=== PATIENT | female | born 1955 | race African-American/Black ===

== ENCOUNTER → 2016-12-24 | Outpatient (CLI) | payer MEDICARE, OTHER ==
--- NOTE | 2016-12-24 15:06 | KCIC ---
Bilateral digital screening mammograms with CAD: HISTORY Routine screening. COMPARISON Comparison is made to previous examination dated 05/17/2014. FINDINGS Breast density category B. The skin and nipples show no abnormalities. No abnormal lymph nodes are seen in the axilla. The breast parenchyma shows scattered fibroglandular density. There are no dominant masses, suspicious calcifications or architectural distortions. IMPRESSION No evidence of malignancy. Recommend routine annual mammographic screening. This study was interpreted with the benefit of Computerized Aided Detection (CAD). Mammography is not 100% sensitive in detecting breast cancer. Therefore, a self breast exam and a clinical breast exam are very important. A negative mammogram does not negate a clinically suspicious finding and should not result in a delay in biopsying a clinically suspicious abnormality. BI-RADS category 1. Negative. This patient's information has been entered into a reminder system for the patient to be notified with the results of this examination and a target date for her next mammograms. Electronically signed by: Rachel Burroughs MD (Dec 24, 2016 15:05:16)
== END | disposition home or self-care (01) ==
LOC: KCIC MAMMO 10:26
PROVIDERS: ATTEND Family Medicine
DX: Z12.31 Encounter for screening mammogram for malignant neoplasm of breast (principal)
CPT/HCPCS: G0202; 77067

== ENCOUNTER → 2018-01-04 | Outpatient (CLI) | payer MEDICARE, MEDICAID, OTHER | END | disposition home or self-care (01) | LOC: KCIC MAMMO 13:23 | DX: Z12.31 Encounter for screening mammogram for malignant neoplasm of breast (principal) | CPT/HCPCS: 77063; 77067 ==

== ENCOUNTER → 2019-01-24 | Outpatient (CLI) | payer MEDICARE, MEDICAID ==
--- NOTE | 2019-01-24 16:39 | KCIC ---
History: Screening. Bilateral digital CC and MLO views were obtained with mammography and tomosynthesis. Computer aided detection was utilized with iCAD Second Look 7.2-H. Previous: January 04, 2018 and priors. There are scattered fibroglandular densities (Level 2 density).There are no suspicious masses, suspicious microcalcifications or areas of architectural distortion. Nodularity of the glandular tissue is stable. IMPRESSION: Negative mammogram. Patient information was entered into the [employer] reminder system with a target due date for the next screening mammogram. Routine annual screening mammogram in one year advised. BI-RADS Category 1: Negative. If your mammogram demonstrates that you have dense breast tissue, which could hide abnormalities, and if you have other risk factors for breast cancer that have been identified, you might benefit from supplemental screening tests that may be suggested by your ordering physician. Dense breast tissue, in and of itself, is a relatively common condition. This information is not provided to cause undue concern, but rather to raise your awareness and to promote discussion with your physician regarding the presence of other risk factors, in addition to dense breast tissue. A report of your mammography results will be sent to you and your physician. You should contact your physician if you have any questions or concerns regarding this report. A mammogram does not have 100% sensitivity and therefore a negative imaging study should not delay further work up of a suspicious abnormality. "Our facility is accredited by the [employer] Mammography Program." Electronically signed by: Maurice Jung MD (01/24/2019 4:36 PM) [id number]
== END | disposition home or self-care (01) ==
LOC: KCIC MAMMO 08:10
PROVIDERS: ATTEND Family Medicine
DX: Z12.31 Encounter for screening mammogram for malignant neoplasm of breast (principal)
CPT/HCPCS: 77063; 77067

== ENCOUNTER 2019-08-31 20:06 | Emergency (ER) | payer MEDICARE, MEDICAID ==
[~2019-08-31] VITALS: Ht 154.9 cm; Wt 93.0 kg
[2019-08-31 20:06] VITALS: BP 191/89
[2019-08-31] MEDS ORDERED: EMPA10TA PO (20:16)
[2019-08-31] MEDS ORDERED: METF10007 PO (20:16)
[2019-08-31] MEDS ORDERED: AMLO5TAB10 PO (20:17)
[2019-08-31] MEDS ORDERED: LISI10TA2 PO (20:17)
--- NOTE | 2019-08-31 21:04 | PHYS DOC ---
Past Medical History Past Medical History: Arthritis, Diabetes-Type II, Migraines Additional Past Medical Histor: NEUROPATHY,CHRONIC BACK PAIN,IRON DEFFICIENCIES Past Surgical History: Appendectomy, Additional Past Surgical Histo: PORT REMOVED,R SHOULDER,R WRIST,BACK SX Alcohol Use: None Drug Use: None Adult General Chief Complaint Chief Complaint: ANKLE PROBLEM HPI HPI Patient is a 63 year old female who presents with was walking her dog when she tripped and fell, rolling her right ankle and foot. Patient rates her pain a 10 out 10. Review of Systems Review of Systems Musculoskeletal: Denies back pain. Right foot and ankle joint pain [] All other systems were reviewed and found to be within normal limits, except as documented in this note. Current Medications Current Medications Current Medications Medications (Trade) Dose Ordered Sig/Amee Start Time Stop Time Status Last Admin Dose Admin Acetaminophen/ Hydrocodone Bitart (Lortab 5/325) 1 tab 1X ONCE 08/31/19 21:15 08/31/19 21:16 DC 08/31/19 21:15 1 TAB Allergies Allergies Allergies Coded Allergies Type Severity Reaction Last Updated Verified Penicillins Allergy Unknown "I DONT KNOW MY MOPM SAYS I WAS" 08/31/19 Yes Uncoded Allergies Type Severity Reaction Last Updated Verified "MUSCLE RELAXER" Allergy Intermediate Unknown 08/31/19 Physical Exam Physical Exam Constitutional: Well developed, well nourished, no acute distress, non-toxic raisa earance. [] HENT: Normocephalic, atraumatic, bilateral external ears normal, oropharynx moist, no oral exudates, nose normal. [] Eyes: PERRLA, EOMI, conjunctiva normal, no discharge. [] Neck: Normal range of motion, no tenderness, supple, no stridor. [] Cardiovascular:Heart rate regular rhythm, no murmur [] Lungs & Thorax: Bilateral breath sounds clear to auscultation [] Abdomen: Bowel sounds normal, soft, no tenderness, no masses, no pulsatile masses. [] Skin: Warm, dry, no erythema, no rash. [] Back: No tenderness, no CVA tenderness. [] Extremities: Dorsal right foot and medial and lateral ankle tenderness, no cyanosis, no clubbing, ROM not intact, 1+ edema. [] Neurologic: Alert and oriented X 3, normal motor function, normal sensory function, no focal deficits noted. [] Psychologic: Affect normal, judgement normal, mood normal. [] Current Patient Data Vital Signs Vital Signs Date Time Temp Pulse Resp B/P (MAP) Pulse Ox O2 Delivery O2 Flow Rate FiO2 08/31/19 21:15 19 Room Air 08/31/19 20:06 97.7 107 191/89 (123) 99 97.7 EKG EKG [] Radiology/Procedures Radiology/Procedures [] Course & Med Decision Making Course & Med Decision Making Alert and oriented. Speaks in full clear sentences. Skin pink warm and dry. Pedal pulses are present. There is dorsal right foot 1+ swelling and tenderness to the fibula side. There is lateral medial ankle tenderness and 1+ swelling. Patient does have slight range of motion in the ankle but it is painful. Patient can wiggle her toes. Cap refill less than 3 seconds. Deformity or abrasions or lacerations. Xray read by Dr Burgos as a foot and ankle sprain with abnormal lucensy on the fibula. Patient placed in a Stirrup splint and to follow up with orthopedics. Splint Assessment: Neurovascularly intact post splint placement with good fit. Dragon Disclaimer Dragon Disclaimer This electronic medical record was generated, in whole or in part, using a voice recognition dictation system. Departure Departure Impression: Primary Impression: Ankle sprain Additional Impression: Foot sprain Disposition: HOME, SELF-CARE Condition: STABLE Referrals: ASAD MALIK (PCP) CRISTIAN CUELLAR MD Patient Instructions: Ankle Sprain, Foot Sprain-Brief Additional Instructions: Follow up with orthopedics by calling on Tuesday. Take medications as prescribed. Use ice and elevation. Scripts Hydrocodone/Apap 5-325 (NORCO 5-325 TABLET) 1 Each Tablet 1 TAB PO PRN Q6HRS PRN for PAIN, #10 TAB 0 Refills Prov: MARY AGUILAR DOUBLE NEEDLE OPERATOR 08/31/19 Problem Qualifiers Primary Impression: Ankle sprain Encounter type: initial encounter Involved ligament of ankle: unspecified ligament Laterality: right Qualified Codes: S93.401A - Sprain of unspecified ligament of right ankle, initial encounter Additional Impression: Foot sprain Encounter type: initial encounter Laterality: right Qualified Codes: S93.601A - Unspecified sprain of right foot, initial encounter MARY AGUILAR DOUBLE NEEDLE OPERATOR Aug 31, 2019 21:04
[2019-08-31] MEDS ORDERED: HYDROcodone/APAP 5/325MG 1 TAB TABLET PO ONE (21:15)
[2019-08-31] MEDS ORDERED: HYDR-3164 PO (22:01)
--- NOTE | 2019-08-31 22:07 | RAD ---
Indication: Fall TECHNIQUE: 3 views of the right foot and 3 views of the right ankle COMPARISON: None FINDINGS: Foot: Mild midfoot osteoarthritis. No acute fracture or dislocation. Ankle: No acute fracture or dislocation. Ankle mortise is intact. IMPRESSION: As above. Electronically signed by: Diego Petersen DO (08/31/2019 10:04 PM) [facility]
--- NOTE | 2019-08-31 22:07 | RAD ---
Indication: Fall TECHNIQUE: 3 views of the right foot and 3 views of the right ankle COMPARISON: None FINDINGS: Foot: Mild midfoot osteoarthritis. No acute fracture or dislocation. Ankle: No acute fracture or dislocation. Ankle mortise is intact. IMPRESSION: As above. Electronically signed by: Diego Petersen DO (08/31/2019 10:04 PM) [facility]
== END 2019-08-31 22:20 | disposition home or self-care (01) ==
LOC: ER 20:06
DX: S93.401A Sprain of unspecified ligament of right ankle, initial encounter (principal); S93.601A Unspecified sprain of right foot, initial encounter; G43.909 Migraine, unspecified, not intractable, without status migrainosus; E11.40 Type 2 diabetes mellitus with diabetic neuropathy, unspecified; G89.29 Other chronic pain; Z88.0 Allergy status to penicillin; Z88.8 Allergy status to other drugs, medicaments and biological substances; W01.0XXA Fall on same level from slipping, tripping and stumbling without subsequent striking against object, initial encounter; Y93.K1 Activity, walking an animal; Y92.89 Other specified places as the place of occurrence of the external cause; Y99.8 Other external cause status
CPT/HCPCS: 29515; 73610; 73630; 99284

== ENCOUNTER 2019-10-11 11:07 | Observation (INO) | payer MEDICARE, MEDICAID ==
[~2019-10-11] VITALS: Ht 154.9 cm; Wt 98.7 kg
[~2019-10-11 11:07] MED LIST: AMLO5TAB10 PO; EMPA10TA PO; HYDR-3164 PO; LISI10TA2 PO; METF10007 PO
[2019-10-11] MEDS ORDERED: fentaNYL PF VIAL 100 MCG/2 ML VIAL IVP ONE (11:30)
--- NOTE | 2019-10-11 11:31 | RAD ---
EXAM: CHEST 1 VIEW History: Chest pain COMPARISON: 01/10/2013 TECHNIQUE: Single portable radiograph of the chest FINDINGS: The cardiac silhouette is unremarkable. The lungs are clear bilaterally. The costophrenic sulci are clear and well demarcated. IMPRESSION: No radiographic evidence of an acute cardiopulmonary process. Electronically signed by: Juan Alberto Hurst MD (10/11/2019 11:28 AM) [place] [id number]
--- NOTE | 2019-10-11 11:41 | EKG ---
[facility] [address] [place] [address] Test Date: 2019-10-11 Test Time: 11:13:07 Pat Name: CHRISTIANA GRANT Department: Room: Gender: F [employer] Associate: : [id number] Requested By: HEIDI DUVAL Order Number: [id number] Reading MD: Measurements Intervals [place] Rate: 84 P: 158 PA: 134 QRS: -15 QRSD: 90 T: 35 QT: 378 QTc: 450 Interpretive Statements SINUS RHYTHM LEFT ATRIAL ABNORMALITY LEFTWARD AXIS ABNORMAL ECG RI6.01 No previous ECG available for comparison
[2019-10-11 11:44] LABS: BASO # 0.1 x10^3/uL (0.0-0.2); BASO % 1 % (0-3); EOS # 0.1 x10^3/uL (0.0-0.7); EOS % 2 % (0-3); HEMOGLOBIN 12.9 g/dL (12.0-15.5); LYMPH # 2.4 x10^3/uL (1.0-4.8); LYMPH % 30 % (24-48); MEAN CORPUSCULAR HEMOGLOBIN 28 pg (25-35); MEAN CORPUSCULAR HGB CONC 32 g/dL (31-37); MEAN CORPUSCULAR VOLUME 86 fL (79-100); MONO # 0.5 x10^3/uL (0.0-1.1); MONO % 7 % (0-9); NEUT # 4.7 x10^3/uL (1.8-7.7); NEUT % 60 % (31-73); PLATELET COUNT 379 x10^3/uL (140-400); RED BLOOD COUNT 4.65 x10^6/uL (3.50-5.40); RED CELL DISTRIBUTION WIDTH 16.4 % (11.5-14.5); WHITE BLOOD COUNT 7.8 x10^3/uL (4.0-11.0)
[2019-10-11 13:14] LABS: CALCIUM 9.3 mg/dL (8.5-10.1); CREATININE 0.8 mg/dL (0.6-1.0); GFR 87.9; POTASSIUM 4.2 mmol/L (3.5-5.1)
[2019-10-11 13:20] LABS: ALBUMIN 4.1 g/dL (3.4-5.0); ALBUMIN/GLOBULIN RATIO 1.2 (1.0-1.7); TOTAL BILIRUBIN 0.2 mg/dL (0.2-1.0); TOTAL PROTEIN 7.5 g/dL (6.4-8.2)
--- NOTE | 2019-10-11 14:49 | PDOC1 ---
History and Physical Date of Admission Date of Admission DATE: 10/11/19 TIME: 14:48 Identification/Chief Complaint Chief Complaint Chest pain Source Source: Patient History of Present Illness History of Present Illness Ms May is a 63 yo AA F w/ PMHx HTN, Hyperlipidemia, Peripheral neuropathy, Anxiety, Depression, Rheumatoid arthritis, Diabetes who was driven to ED by her son for substernal chest pain. Patient reports pain began 1 week ago. Describes as stabbing pain in her central chest 02/26. Is significantly worse with applying pressure to the central chest and with eating. Lexiscan February of 2019 showed subtle area of reversible ischemia involving the distal inferior wall. [place] to be low risk overall and no other workup was conducted. Patient denies any associated dizziness, diaphoresis, SOA, or palpitations. No radiation to her jaw or arm, has numbness and tingling related to polyneuropathy EKG NSR, rate 84. No acute ST t wave changes and troponin WNL. CXR clear. Due to her high risk ACS with DM2 and RA, admitted for observation with cardiology consultation. Past Medical History Cardiovascular: HTN, Hyperlipidemia, Aortic stenosis (Biscupid aortic valve) Pulmonary: No pertinent hx CENTRAL NERVOUS SYSTEM: Carpal Tunnel Syndrome GI: No pertinent hx Heme/Onc: No pertinent hx Hepatobiliary: No pertinent hx Psych: Anxiety, Depression Musculoskeletal: low back pain Rheumatologic: Rheumatoid arthritis Infectious disease: No pertinent hx ENT: No pertinent hx Renal/: No pertinent hx Endocrine: Diabetes Dermatology: No pertinent hx Past Surgical History Past Surgical History Appendectomy, , PORT REMOVED,R SHOULDER,R WRIST,BACK SX Past Surgical History: Other Family History Family History: Hypertension Social History Smoke: No ALCOHOL: none Drugs: None Current Medications Current Medications Current Medications Fentanyl Citrate (Fentanyl 2ml Vial) 50 mcg 1X ONCE IVP Last administered on 10/11/19at 12:11; Start 10/11/19 at 11:30; Stop 10/11/19 at 11:31; Status DC Active Scripts Active Funk 5-325 Tablet (Acetaminophen/Hydrocodone Bitart) 1 Each Tablet 1 Tab PO PRN Q6HRS PRN Reported Amlodipine Besylate 5 Mg Tablet 5 Mg PO DAILY Lisinopril 10 Mg Tablet 1 Tab PO DAILY Jardiance (Empagliflozin) 10 Mg Tablet 10 Mg PO Metformin Hcl 1,000 Mg Tablet 1,000 Mg PO BIDWMEALS Allergies Allergies: Coded Allergies: Penicillins (Verified Allergy, Unknown, "I DONT KNOW MY MOPM SAYS I WAS" , 08/31/19) Uncoded Allergies: "MUSCLE RELAXER" (Allergy, Intermediate, Unknown, 08/31/19) "SWELLING ALL OVER" ROS General: YES: Fatigue, Malaise; No: Chills, Night Sweats, Appetite, Other PSYCHOLOGICAL ROS: YES: Anxiety; No: Behavioral Disorder, Concentration difficultie, Decreased libido, Depression, Disorientation, Hallucinations, Hostility, Irritablity, Memory difficulties, Mood Swings, Obsessive thoughts, Physical abuse, Sexual abuse, Sleep disturbances, Suicidal ideation, Other Eyes: No Blurry vision, No Decreased vision, No Double vision, No Dry eyes, No Excessive tearing, No Eye Pain, No Itchy Eyes, No Loss of vision, No Photophobia, No Scotomata, No Uses contacts, No Uses glasses, No Other HEENT: No: Heacaches, Visual Changes, Hearing change, Nasal congestion, Nasal discharge, Oral lesions, Sinus pain, Sore Throat, Epistaxis, Sneezing, Snoring, Tinnitus, Vertigo, Vocal changes, Other ALLERGY AND IMMUNOLOGY: No: Hives, Insect Bite Sensitivity, Itchy/Watery Eyes, Nasal Congestion, Post Nasal Drip, Seasonal Allergies, Other Hematological and Lymphatic: No: Bleeding Problems, Blood Clots, Blood Transfusions, Brusing, Night Sweats, Pallor, Swollen Lymph Nodes, Other ENDOCRINE: No: Breast Changes, Galactorrhea, Hair Pattern Changes, Hot Flashes, Malaise/lethargy, Mood Swings, Palpitations, Polydipsia/polyuria, Skin Changes, Temperature Intolerance, Unexpected Weight Changes, Other Breast: No New/Changing Breast Lumps, No Nipple changes, No Nipple discharge, No Other Respiratory: No: Cough, Hemoptysis, Orthopnea, Pleuritic Pain, Shortness of breath, SOB with excertion, Sputum Changes, Stridor, Tachypnea, Wheezing, Other Cardiovascular: yes Chest Pain; No Palpitations, No Orthopnea, No Paroxysmal Noc. Dyspnea, No Edema, No Lt Headedness, No Other Gastrointestinal: Yes Nausea; No Vomiting, No Abdominal Pain, No Diarrhea, No Constipation, No Melena, No Hematochezia, No Other Genitourinary: No Dysuria, No Frequency, No Incontinence, No Hematuria, No Retention, No Discharge, No Urgency, No Pain, No Flank Pain, No Other, No , No , No , No , No , No , No Musculoskeletal: Yes Joint Pain, Yes Joint Stiffness, Yes Muscle Pain; No Gait Disturbance, No Joint Swelling, No Muscular Weakness, No Pain In:, No Swelling In:, No Other Neurological: Yes Headaches; No Behavorial Changes, No Bowel/Bladder ControlChng, No Confusion, No D izziness, No Gait Disturbance, No Impaired Coord/balance, No Memory Loss, No Numbness/Tingling, No Seizures, No Speech Problems, No Tremors, No Visual Changes, No Weakness, No Other Skin: No Dry Skin, No Eczema, No Hair Changes, No Lumps, No Mole Changes, No Mottling, No Nail Changes, No Pruritus, No Rash, No Skin Lesion Changes, No Other, No Acne Physical Exam General: Alert, Oriented X3, Cooperative, No acute distress HEENT: Atraumatic, PERRLA, EOMI, Mucous membr. moist/pink Lungs: Clear to auscultation, Normal air movement Heart: S1S2, RRR, no thrills, no rubs, murmurs (2/6 MITCHELL), other (Reproducible chest pain) Abdomen: Normal bowel sounds, Soft, No tenderness, No hepatosplenomegaly, No masses Rectal Exam: not examined Extremities: No clubbing, No cyanosis, No edema, Normal pulses, No tenderness/swelling Skin: No rashes, No breakdown, No significant lesion Neuro: Normal gait, Normal speech, Strength at 5/5 X4 ext, Normal tone, Sensation intact, Cranial nerves 3-12 NL, Reflexes 2+ Psych/Mental Status: Mental status NL, Mood NL Vitals Vitals Vital Signs Date Time Temp Pulse Resp B/P (MAP) Pulse Ox O2 Delivery O2 Flow Rate FiO2 10/11/19 12:11 98 Room Air 10/11/19 11:08 97.7 88 18 169/77 (107) 97.7 Labs Labs Laboratory Tests Test 10/11/19 11:30 10/11/19 12:55 White Blood Count 7.8 x10^3/uL (4.0-11.0) Red Blood Count 4.65 x10^6/uL (3.50-5.40) Hemoglobin 12.9 g/dL (12.0-15.5) Hematocrit 40.0 % (36.0-47.0) Mean Corpuscular Volume 86 fL (79-100) Mean Corpuscular Hemoglobin 28 pg (25-35) Mean Corpuscular Hemoglobin Concent 32 g/dL (31-37) Red Cell Distribution Width 16.4 % (11.5-14.5) Platelet Count 379 x10^3/uL (140-400) Neutrophils (%) (Auto) 60 % (31-73) Lymphocytes (%) (Auto) 30 % (24-48) Monocytes (%) (Auto) 7 % (0-9) Eosinophils (%) (Auto) 2 % (0-3) Basophils (%) (Auto) 1 % (0-3) Neutrophils # (Auto) 4.7 x10^3/uL (1.8-7.7) Lymphocytes # (Auto) 2.4 x10^3/uL (1.0-4.8) Monocytes # (Auto) 0.5 x10^3/uL (0.0-1.1) Eosinophils # (Auto) 0.1 x10^3/uL (0.0-0.7) Basophils # (Auto) 0.1 x10^3/uL (0.0-0.2) D-Dimer (Laura) < 0.27 ug/mlFEU Sodium Level 145 mmol/L (136-145) Potassium Level 4.2 mmol/L (3.5-5.1) Chloride Level 107 mmol/L (98-107) Carbon Dioxide Level 32 mmol/L (21-32) Anion Gap 6 (6-14) Blood Urea Nitrogen 13 mg/dL (7-20) Creatinine 0.8 mg/dL (0.6-1.0) Estimated GFR (Cockcroft-Gault) 87.9 BUN/Creatinine Ratio 16 (6-20) Glucose Level 107 mg/dL (70-99) Calcium Level 9.3 mg/dL (8.5-10.1) Total Bilirubin 0.2 mg/dL (0.2-1.0) Aspartate Amino Transf (AST/SGOT) 23 U/L (15-37) Alanine Aminotransferase (ALT/SGPT) 38 U/L (14-59) Alkaline Phosphatase 108 U/L (46-116) Troponin I Quantitative < 0.017 ng/mL (0.000-0.055) Total Protein 7.5 g/dL (6.4-8.2) Albumin 4.1 g/dL (3.4-5.0) Albumin/Globulin Ratio 1.2 (1.0-1.7) Laboratory Tests Test 10/11/19 11:30 10/11/19 12:55 White Blood Count 7.8 x10^3/uL (4.0-11.0) Red Blood Count 4.65 x10^6/uL (3.50-5.40) Hemoglobin 12.9 g/dL (12.0-15.5) Hematocrit 40.0 % (36.0-47.0) Mean Corpuscular Volume 86 fL (79-100) Mean Corpuscular Hemoglobin 28 pg (25-35) Mean Corpuscular Hemoglobin Concent 32 g/dL (31-37) Red Cell Distribution Width 16.4 % (11.5-14.5) Platelet Count 379 x10^3/uL (140-400) Neutrophils (%) (Auto) 60 % (31-73) Lymphocytes (%) (Auto) 30 % (24-48) Monocytes (%) (Auto) 7 % (0-9) Eosinophils (%) (Auto) 2 % (0-3) Basophils (%) (Auto) 1 % (0-3) Neutrophils # (Auto) 4.7 x10^3/uL (1.8-7.7) Lymphocytes # (Auto) 2.4 x10^3/uL (1.0-4.8) Monocytes # (Auto) 0.5 x10^3/uL (0.0-1.1) Eosinophils # (Auto) 0.1 x10^3/uL (0.0-0.7) Basophils # (Auto) 0.1 x10^3/uL (0.0-0.2) D-Dimer (Laura) < 0.27 ug/mlFEU Sodium Level 145 mmol/L (136-145) Potassium Level 4.2 mmol/L (3.5-5.1) Chloride Level 107 mmol/L (98-107) Carbon Dioxide Level 32 mmol/L (21-32) Anion Gap 6 (6-14) Blood Urea Nitrogen 13 mg/dL (7-20) Creatinine 0.8 mg/dL (0.6-1.0) Estimated GFR (Cockcroft-Gault) 87.9 BUN/Creatinine Ratio 16 (6-20) Glucose Level 107 mg/dL (70-99) Calcium Level 9.3 mg/dL (8.5-10.1) Total Bilirubin 0.2 mg/dL (0.2-1.0) Aspartate Amino Transf (AST/SGOT) 23 U/L (15-37) Alanine Aminotransferase (ALT/SGPT) 38 U/L (14-59) Alkaline Phosphatase 108 U/L (46-116) Troponin I Quantitative < 0.017 ng/mL (0.000-0.055) Total Protein 7.5 g/dL (6.4-8.2) Albumin 4.1 g/dL (3.4-5.0) Albumin/Globulin Ratio 1.2 (1.0-1.7) Images Images [facility] RECORDS ECHOCARDIOGRAM Technically difficult study; i.v. transpulmonary contrast was used to define the endocardial borders. Hyperdynamic left ventricular systolic function with an estimated left ventricular ejection fraction of 65%. Trace mitral and tricuspid valve regurgitation. Severely sclerotic, probably bicuspid aortic valve, mild stenosis (MG ~ 8 mmHg, peak velocity ~ 2.0 m/sec), no regurgitation. The proximal ascending aorta is not dilated, there is effacement of the sinotubular junction. Estimated Peak Systolic PA Pressure 23 mmHg 03/13/19 - 2-D + DOPPLER ECHOCARDIOGRAM STRESS TEST SUMMARY/OPINION: This study is borderline abnormal. The inferior wall appears to be hypokinetic. The perfusion pattern is only minimally abnormal with a subtle area of reversible ischemia involving the distal inferior wall. The overall left ventricular systolic function is normal. There are no high risk prognostic indicators present. The pharmacologic ECG portion of the study is negative for ischemia. There are no prior studies available for comparison. 03/16/19 - Procedure: D-SPECT MULTI GATED THALLIUM REGADENOSON MPI STRESS TEST VTE Prophylaxis Ordered VTE Prophylaxis Devices: No VTE Pharmacological Prophylaxi: Yes Assessment/Plan Assessment/Plan A/P: Chest pain - high risk ACS. trop and EKG negative. Most probably costochondritis in origin given the reproducibility. MPI 2019 subtle area of reversible ischemia involving the distal inferior wall. Hypertension; controlled - cont meds Hyperlipidemia - cont statin Diabetes, II - A1c is 6.8 from June 2019. Sliding scale in house Bicuspid aortic valve - per echo in [facility] records RA - on xeemir Depression/anxiety - will cont her home medications. I have reviewed them with her but she does not know any of her meds. FEN - ADA diet PPX - lovenox FULL CODE Dispo - Consider further ischemic evaluation on an outpatient basis. Will defer to primary cardiology at . DALIA CABA MD Oct 11, 2019 14:49
[2019-10-11] MEDS ORDERED: ONDANSETRON PF 4 MG/2 ML VIAL. IVP PRN (15:00)
[2019-10-11] MEDS ORDERED: NITROGLYCERIN SUBLINGUAL 0.4 MG BOTTLE OF 25. SL PRN (15:00)
[2019-10-11] MEDS ORDERED: DEXTROSE 50% 25 GM / 50ML DISP.SYRIN. IV PRN (15:45)
[2019-10-11] MEDS ORDERED: LIDO:MAALOX 1:1 20 ML SINGLE DOSE. SWSW ONE (15:45)
[2019-10-11] MEDS ORDERED: IV DEXTROSE 5% 250 ML BAG. IV PRN (15:45)
--- NOTE | 2019-10-11 15:59 | PDOC2 ---
JONNY LIU PARK SUPERINTENDENT 10/11/19 1559: CARDIAC CONSULT DATE OF CONSULT Date of Consult DATE: 10/11/19 TIME: 15:56 REASON FOR CONSULT Reason for Consult: Chest pain REFERRING PHYSICIAN Referring Physician: Dr. Rios SOURCE Source: Chart review, Patient HISTORY OF PRESENT ILLNESS HISTORY OF PRESENT ILLNESS This is a 63 yo female who presented secondary to chest pain. Patient reports pain began 1 week ago. Describes as stabbing pain in her central chest. Is significantly worse with applying pressure to the central chest and with eating. Has extensive h/o RA. Has seen Dr. Moss at . Underwent stress test last year that showed subtle area of reversible ischemia involving the distal inferior wall. [place] to be low risk overall and no other workup was conducted. Patient denies any associated dizziness, diaphoresis, SOA, or palpitations. PAST MEDICAL HISTORY Cardiovascular: HTN, Hyperlipidemia CENTRAL NERVOUS SYSTEM: Periperal neuropathy Psych: Anxiety, Depression Rheumatologic: Rheumatoid arthritis Endocrine: Diabetes PAST SURGICAL HISTORY Past Surgical History: Other (right shoulder surgery, back surgery) FAMILY HISTORY Family History: Hypertension SOCIAL HISTORY Smoke: No ALCOHOL: none Drugs: None Lives: Alone CURRENT MEDICATIONS CURRENT MEDICATIONS Current Medications Medications (Trade) Dose Ordered Sig/Amee Route PRN Reason Start Time Stop Time Status Last Admin Dose Admin Fentanyl Citrate (Fentanyl 2ml Vial) 50 mcg 1X ONCE IVP 10/11/19 11:30 10/11/19 11:31 DC 10/11/19 12:11 ALLERGIES ALLERGIES: Coded Allergies: Penicillins (Verified Allergy, Unknown, "I DONT KNOW MY MOPM SAYS I WAS" , 08/31/19) Uncoded Allergies: "MUSCLE RELAXER" (Allergy, Intermediate, Unknown, 08/31/19) "SWELLING ALL OVER" ROS Review of System 14 point ROS conducted with pertinent positives noted above in HPI PHYSICAL EXAM General: Alert, Oriented X3, Cooperative, No acute distress HEENT: Atraumatic Lungs: Clear to auscultation, Normal air movement, Other (severe central chest tenderness upon palpitation) Abdomen: Soft, No tenderness Extremities: No edema, Normal pulses Neuro: Normal speech, Sensation intact Psych/Mental Status: Mental status NL, Mood NL MUSCULOSKELETAL: Osteoarthritic changes both hands VITALS/I&O VITALS/I&O: Vital Signs Date Time Temp Pulse Resp B/P (MAP) Pulse Ox O2 Delivery O2 Flow Rate FiO2 10/11/19 14:34 81 146/70 (95) 99 Room Air 10/11/19 11:08 97.7 18 97.7 LABS Lab: Laboratory Tests Test 10/11/19 11:30 10/11/19 12:55 10/11/19 15:14 White Blood Count 7.8 x10^3/uL (4.0-11.0) Red Blood Count 4.65 x10^6/uL (3.50-5.40) Hemoglobin 12.9 g/dL (12.0-15.5) Hematocrit 40.0 % (36.0-47.0) Mean Corpuscular Volume 86 fL (79-100) Mean Corpuscular Hemoglobin 28 pg (25-35) Mean Corpuscular Hemoglobin Concent 32 g/dL (31-37) Red Cell Distribution Width 16.4 % (11.5-14.5) H Platelet Count 379 x10^3/uL (140-400) Neutrophils (%) (Auto) 60 % (31-73) Lymphocytes (%) (Auto) 30 % (24-48) Monocytes (%) (Auto) 7 % (0-9) Eosinophils (%) (Auto) 2 % (0-3) Basophils (%) (Auto) 1 % (0-3) Neutrophils # (Auto) 4.7 x10^3/uL (1.8-7.7) Lymphocytes # (Auto) 2.4 x10^3/uL (1.0-4.8) Monocytes # (Auto) 0.5 x10^3/uL (0.0-1.1) Eosinophils # (Auto) 0.1 x10^3/uL (0.0-0.7) Basophils # (Auto) 0.1 x10^3/uL (0.0-0.2) D-Dimer (Laura) < 0.27 ug/mlFEU Sodium Level 145 mmol/L (136-145) Potassium Level 4.2 mmol/L (3.5-5.1) Chloride Level 107 mmol/L (98-107) Carbon Dioxide Level 32 mmol/L (21-32) Anion Gap 6 (6-14) Blood Urea Nitrogen 13 mg/dL (7-20) Creatinine 0.8 mg/dL (0.6-1.0) Estimated GFR (Cockcroft-Gault) 87.9 BUN/Creatinine Ratio 16 (6-20) Glucose Level 107 mg/dL (70-99) H Calcium Level 9.3 mg/dL (8.5-10.1) Total Bilirubin 0.2 mg/dL (0.2-1.0) Aspartate Amino Transferase (AST) 23 U/L (15-37) Alanine Aminotransferase (ALT) 38 U/L (14-59) Alkaline Phosphatase 108 U/L (46-116) Troponin I Quantitative < 0.017 ng/mL (0.000-0.055) Total Protein 7.5 g/dL (6.4-8.2) Albumin 4.1 g/dL (3.4-5.0) Albumin/Globulin Ratio 1.2 (1.0-1.7) Glucose (Fingerstick) 49 mg/dL (70-99) L Laboratory Tests 10/11/19 11:30 Laboratory Tests 10/11/19 12:55 ECHOCARDIOGRAM ECHOCARDIOGRAM Technically difficult study; i.v. transpulmonary contrast was used to define the endocardial borders. Hyperdynamic left ventricular systolic function with an estimated left ventricular ejection fraction of 65%. Trace mitral and tricuspid valve regurgitation. Severely sclerotic, probably bicuspid aortic valve, mild stenosis (MG ~ 8 mmHg, peak velocity ~ 2.0 m/sec), no regurgitation. The proximal ascending aorta is not dilated, there is effacement of the sinotubular junction. Estimated Peak Systolic PA Pressure 23 mmHg 03/13/19 - 2-D + DOPPLER ECHOCARDIOGRAM STRESS TEST STRESS TEST SUMMARY/OPINION: This study is borderline abnormal. The inferior wall appears to be hypokinetic. The perfusion pattern is only minimally abnormal with a subtle area of reversible ischemia involving the distal inferior wall. The overall left ventricular systolic function is normal. There are no high risk prognostic indicators present. The pharmacologic ECG portion of the study is negative for ischemia. There are no prior studies available for comparison. 03/16/19 - Procedure: D-SPECT MULTI GATED THALLIUM REGADENOSON MPI STRESS TEST ASSESSMENT/PLAN ASSESSMENT/PLAN 1. Chest pain, atypical. Initial trop negative. Most probably MSK in origin. Central chest significantly tender upon palpitation. MPI last year with subtle area of reversible ischemia involving the distal inferior wall. Study felt to be low risk and no further workup was conducted per review of [facility] records. 2. Hypertension; controlled 3. Hyperlipidemia 4. Diabetes, II 5. Bicuspid aortic valve 6. RA 7. Depression/anxiety Recommendations Trend troponin ASA therapy lipids- statin if indication Echo to assess LV systolic function Consider further ischemic evaluation on an outpatient basis. Will defer to primary cardiology at . HO SHANKS MD 10/12/19 0956: CARDIAC CONSULT ASSESSMENT/PLAN ASSESSMENT/PLAN Patient seen and examined 10/11/19. Agree with IN SERVICE EDUCATION TEACHER's assessment and plan. Chest pain with atypical features and most probably musculoskeletal. Myocardial infarction has been ruled out. Check 2-D echo to assess LV function and rule out wall motion abnormalities. Thank you for your consultation. JONNY LIU APRN Oct 11, 2019 15:59 HO SHANKS MD Oct 12, 2019 09:56
--- NOTE | 2019-10-11 16:08 | PHYS DOC ---
Past Medical History Past Medical History: Arthritis, Diabetes-Type II, Migraines Additional Past Medical Histor: NEUROPATHY,CHRONIC BACK PAIN,IRON DEFFICIENCIES Past Surgical History: Appendectomy, Additional Past Surgical Histo: PORT REMOVED,R SHOULDER,R WRIST,BACK SX Alcohol Use: None Drug Use: None Adult General Chief Complaint Chief Complaint: CHEST PAIN [facility] HPI Patient is a 63 year old male who presents with intermittent left sternal chest pain times one week. Pain is sharp, continuous, nonradiating rated moderate to severe worse with palpation and deep breathing. Is not associated with nausea vomiting or sweats. Patient unable to find position of comfort. No abdominal pain, back pain, leg pain or swelling. Denies history of CAD. No fever chills sweats. Denies cough. No other acute symptoms or complaints.[] Review of Systems Review of Systems ROS as per HPI All other systems were reviewed and found to be within normal limits, except as documented in this note. Current Medications Current Medications Current Medications Medications (Trade) Dose Ordered Sig/Amee Start Time Stop Time Status Last Admin Dose Admin Fentanyl Citrate (Fentanyl 2ml Vial) 50 mcg 1X ONCE 10/11/19 11:30 10/11/19 11:31 DC Allergies Allergies Allergies Coded Allergies Type Severity Reaction Last Updated Verified Penicillins Allergy Unknown "I DONT KNOW MY MOPM SAYS I WAS" 08/31/19 Yes Uncoded Allergies Type Severity Reaction Last Updated Verified "MUSCLE RELAXER" Allergy Intermediate Unknown 08/31/19 Physical Exam Physical Exam Constitutional: Well developed, well nourished, no acute distress, non-toxic appearance. [] HENT: Normocephalic, atraumatic, bilateral external ears normal, oropharynx moist, no oral exudates, nose normal. [] Eyes: PERRLA, EOMI, conjunctiva normal, no discharge. [] Neck: Normal range of motion, no tenderness. [] Cardiovascular:Heart rate regular rhythm, no murmur [] Lungs & Thorax: Bilateral breath sounds clear to auscultation. [] Abdomen: Bowel sounds normal, soft, no tenderness. [] Skin: Warm, dry, no erythema, no rash. [] Back: No tenderness. [] Extremities: No tenderness, no edema. Negative Homans sign/[] Neurologic: Alert and oriented X 3, normal motor function, normal sensory function, no focal deficits noted. [] Psychologic: Affect normal, judgement normal, mood normal. [] Current Patient Data Lab Values Laboratory Tests Test 10/11/19 11:30 White Blood Count 7.8 x10^3/uL (4.0-11.0) Red Blood Count 4.65 x10^6/uL (3.50-5.40) Hemoglobin 12.9 g/dL (12.0-15.5) Hematocrit 40.0 % (36.0-47.0) Mean Corpuscular Volume 86 fL (79-100) Mean Corpuscular Hemoglobin 28 pg (25-35) Mean Corpuscular Hemoglobin Concent 32 g/dL (31-37) Red Cell Distribution Width 16.4 % (11.5-14.5) H Platelet Count 379 x10^3/uL (140-400) Neutrophils (%) (Auto) 60 % (31-73) Lymphocytes (%) (Auto) 30 % (24-48) Monocytes (%) (Auto) 7 % (0-9) Eosinophils (%) (Auto) 2 % (0-3) Basophils (%) (Auto) 1 % (0-3) Neutrophils # (Auto) 4.7 x10^3/uL (1.8-7.7) Lymphocytes # (Auto) 2.4 x10^3/uL (1.0-4.8) Monocytes # (Auto) 0.5 x10^3/uL (0.0-1.1) Eosinophils # (Auto) 0.1 x10^3/uL (0.0-0.7) Basophils # (Auto) 0.1 x10^3/uL (0.0-0.2) Laboratory Tests 10/11/19 11:30 EKG EKG EKG: NSR, rate 84. No acute ST t wave changes. [] Radiology/Procedures Radiology/Procedures [CXR: No acute cardiopulmonary disease per radiology report ] Course & Med Decision Making Course & Med Decision Making Pertinent Labs and Imaging studies reviewed. (See chart for details) [Atypical chest pain reproducible on exam. EKG, lab nondiagnostic. Will admit to the hospitalist service with anticipated cardiology consult.] Dragon Disclaimer Dragon Disclaimer This electronic medical record was generated, in whole or in part, using a voice recognition dictation system. Departure Departure Impression: Primary Impression: Chest pain Disposition: ADMITTED INPATIENT Condition: STABLE Referrals: ASAD MALIK (PCP) HEIDI DUVAL DO Oct 11, 2019 16:08
[2019-10-11] MEDS: INSULIN LISPRO 300 UNITS/3 ML VIAL. SQ SCH ×2 (16:30→21:00)
[2019-10-11] MEDS ORDERED: ASPIRIN 325 MG TABLET PO ONE (16:30)
[2019-10-11 16:52] VITALS: BP 143/58
[2019-10-11 17:23] LABS: CHOLESTEROL/HDL RATIO 3.1
[2019-10-11] MEDS: LIDOCAINE (700MG/PATCH) PATCH. TD SCH (17:43)
[2019-10-11 19:10] VITALS: BP 129/54
[2019-10-11] MEDS ORDERED: PANTOPRAZOLE 40 MG TABLET.DR. PO ONE (20:00)
[2019-10-11] MEDS: HYDROcodone/APAP 5/325MG 1 TAB TABLET PO PRN (20:35)
[2019-10-11] MEDS ORDERED: ATORVASTATIN CALCIUM 20 MG TABLET PO SCH (21:00)
[2019-10-11] MEDS ORDERED: PATCH REMOVAL. MC SCH (21:00)
[2019-10-11 23:10] VITALS: BP 110/57
[2019-10-12 03:10] VITALS: BP 124/57
[2019-10-12 07:00] VITALS: BP 136/74
[2019-10-12] MEDS ORDERED: PANTOPRAZOLE 40 MG TABLET.DR. PO SCH (07:30)
[2019-10-12] MEDS ORDERED: ASPIRIN ENTERIC COATED 81 MG TABLET.DR. PO SCH (08:00)
--- NOTE | 2019-10-12 08:55 | PDOC ---
PROGRESS NOTES Chief Complaint Chief Complaint A/P: Chest pain - high risk ACS. trop and EKG negative. Most probably costochondritis in origin given the reproducibility. MPI 2018 subtle area of reversible ischemia involving the distal inferior wall. Hypertension; controlled - cont meds Hyperlipidemia - cont statin Diabetes, II - A1c is 6.8 from June 2019. Sliding scale in house Bicuspid aortic valve - per echo in [facility] records RA - on xeljanz Depression/anxiety - will cont her home medications. I have reviewed them with her but she does not know any of her meds. FEN - ADA diet PPX - lovenox FULL CODE Dispo - Consider further ischemic evaluation on an outpatient basis. Will defer to primary cardiology at . History of Present Illness History of Present Illness Ms May is a 63 yo AA F w/ PMHx HTN, Hyperlipidemia, Peripheral neuropathy, Anxiety, Depression, Rheumatoid arthritis, Diabetes who was driven to ED by her son for substernal chest pain. Patient reports pain began 1 week ago. Describes as stabbing pain in her central chest 02/26. Is significantly worse with applying pressure to the central chest and with eating. Lexiscan February of 2019 showed subtle area of reversible ischemia involving the distal inferior wall. [place] to be low risk overall and no other workup was conducted. Patient denies any associated dizziness, diaphoresis, SOA, or palpitations. No radiation to her jaw or arm, has numbness and tingling related to polyneuropathy EKG NSR, rate 84. No acute ST t wave changes and troponin WNL. CXR clear. Due to her high risk ACS with DM2 and RA, admitted for observation with cardiology consultation. Pain improved with protonix and hydrocodone. Had echocardiogram The left ventricular systolic function is normal. The ejection fraction is 55-60%. There is normal LV segmental wall motion. Transmitral Doppler flow pattern is Grade II-pseudonormal filling dynamics. Trace mitral regurgitation. Trace tricuspid regurgitation with an estimated PAP of 28 mmHg. There is no evidence of significant pericardial effusion. Vitals Vitals Vital Signs Date Time Temp Pulse Resp B/P (MAP) Pulse Ox O2 Delivery O2 Flow Rate FiO2 10/12/19 03:10 98.1 73 18 124/57 (79) 98 Room Air 98.1 Physical Exam General: Alert, Oriented X3, Cooperative, No acute distress Abdomen: Normal bowel sounds, Soft, No tenderness, No hepatosplenomegaly, No masses Extremities: No clubbing, No cyanosis, No edema, Normal pulses, No tenderness/swelling Skin: No rashes, No breakdown, No significant lesion Labs LABS Laboratory Tests Test 10/11/19 11:30 10/11/19 12:55 10/11/19 15:14 10/11/19 16:29 White Blood Count 7.8 x10^3/uL (4.0-11.0) Red Blood Count 4.65 x10^6/uL (3.50-5.40) Hemoglobin 12.9 g/dL (12.0-15.5) Hematocrit 40.0 % (36.0-47.0) Mean Corpuscular Volume 86 fL (79-100) Mean Corpuscular Hemoglobin 28 pg (25-35) Mean Corpuscular Hemoglobin Concent 32 g/dL (31-37) Red Cell Distribution Width 16.4 % (11.5-14.5) Platelet Count 379 x10^3/uL (140-400) Neutrophils (%) (Auto) 60 % (31-73) Lymphocytes (%) (Auto) 30 % (24-48) Monocytes (%) (Auto) 7 % (0-9) Eosinophils (%) (Auto) 2 % (0-3) Basophils (%) (Auto) 1 % (0-3) Neutrophils # (Auto) 4.7 x10^3/uL (1.8-7.7) Lymphocytes # (Auto) 2.4 x10^3/uL (1.0-4.8) Monocytes # (Auto) 0.5 x10^3/uL (0.0-1.1) Eosinophils # (Auto) 0.1 x10^3/uL (0.0-0.7) Basophils # (Auto) 0.1 x10^3/uL (0.0-0.2) D-Dimer (Laura) < 0.27 ug/mlFEU Sodium Level 145 mmol/L (136-145) Potassium Level 4.2 mmol/L (3.5-5.1) Chloride Level 107 mmol/L (98-107) Carbon Dioxide Level 32 mmol/L (21-32) Anion Gap 6 (6-14) Blood Urea Nitrogen 13 mg/dL (7-20) Creatinine 0.8 mg/dL (0.6-1.0) Estimated GFR (Cockcroft-Gault) 87.9 BUN/Creatinine Ratio 16 (6-20) Glucose Level 107 mg/dL (70-99) Calcium Level 9.3 mg/dL (8.5-10.1) Total Bilirubin 0.2 mg/dL (0.2-1.0) Aspartate Amino Transf (AST/SGOT) 23 U/L (15-37) Alanine Aminotransferase (ALT/SGPT) 38 U/L (14-59) Alkaline Phosphatase 108 U/L (46-116) Troponin I Quantitative < 0.017 ng/mL (0.000-0.055) Total Protein 7.5 g/dL (6.4-8.2) Albumin 4.1 g/dL (3.4-5.0) Albumin/Globulin Ratio 1.2 (1.0-1.7) Triglycerides Level 86 mg/dL (0-150) Cholesterol Level 182 mg/dL (0-200) LDL Cholesterol, Calculated 107 mg/dL (0-100) VLDL Cholesterol, Calculated 17 mg/dL (0-40) Non-HDL Cholesterol Calculated 124 mg/dL (0-129) HDL Cholesterol 58 mg/dL (40-60) Cholesterol/HDL Ratio 3.1 Thyroid Stimulating Hormone (TSH) 0.482 uIU/mL (0.358-3.74) Glucose (Fingerstick) 49 mg/dL (70-99) 132 mg/dL (70-99) Test 10/11/19 18:45 10/11/19 21:01 10/12/19 07:39 Troponin I Quantitative < 0.017 ng/mL (0.000-0.055) Glucose (Fingerstick) 117 mg/dL (70-99) 97 mg/dL (70-99) Assessment and Plan Assessmemt and Plan Problems Medical Problems: (1) Chest pain Status: Acute Comment Review of Relevant I have reviewed the following items carolynn (where applicable) has been applied. Labs Laboratory Tests Test 10/11/19 11:30 10/11/19 12:55 10/11/19 15:14 10/11/19 16:29 White Blood Count 7.8 x10^3/uL (4.0-11.0) Red Blood Count 4.65 x10^6/uL (3.50-5.40) Hemoglobin 12.9 g/dL (12.0-15.5) Hematocrit 40.0 % (36.0-47.0) Mean Corpuscular Volume 86 fL (79-100) Mean Corpuscular Hemoglobin 28 pg (25-35) Mean Corpuscular Hemoglobin Concent 32 g/dL (31-37) Red Cell Distribution Width 16.4 % (11.5-14.5) Platelet Count 379 x10^3/uL (140-400) Neutrophils (%) (Auto) 60 % (31-73) Lymphocytes (%) (Auto) 30 % (24-48) Monocytes (%) (Auto) 7 % (0-9) Eosinophils (%) (Auto) 2 % (0-3) Basophils (%) (Auto) 1 % (0-3) Neutrophils # (Auto) 4.7 x10^3/uL (1.8-7.7) Lymphocytes # (Auto) 2.4 x10^3/uL (1.0-4.8) Monocytes # (Auto) 0.5 x10^3/uL (0.0-1.1) Eosinophils # (Auto) 0.1 x10^3/uL (0.0-0.7) Basophils # (Auto) 0.1 x10^3/uL (0.0-0.2) D-Dimer (Laura) < 0.27 ug/mlFEU Sodium Level 145 mmol/L (136-145) Potassium Level 4.2 mmol/L (3.5-5.1) Chloride Level 107 mmol/L (98-107) Carbon Dioxide Level 32 mmol/L (21-32) Anion Gap 6 (6-14) Blood Urea Nitrogen 13 mg/dL (7-20) Creatinine 0.8 mg/dL (0.6-1.0) Estimated GFR (Cockcroft-Gault) 87.9 BUN/Creatinine Ratio 16 (6-20) Glucose Level 107 mg/dL (70-99) Calcium Level 9.3 mg/dL (8.5-10.1) Total Bilirubin 0.2 mg/dL (0.2-1.0) Aspartate Amino Transf (AST/SGOT) 23 U/L (15-37) Alanine Aminotransferase (ALT/SGPT) 38 U/L (14-59) Alkaline Phosphatase 108 U/L (46-116) Troponin I Quantitative < 0.017 ng/mL (0.000-0.055) Total Protein 7.5 g/dL (6.4-8.2) Albumin 4.1 g/dL (3.4-5.0) Albumin/Globulin Ratio 1.2 (1.0-1.7) Triglycerides Level 86 mg/dL (0-150) Cholesterol Level 182 mg/dL (0-200) LDL Cholesterol, Calculated 107 mg/dL (0-100) VLDL Cholesterol, Calculated 17 mg/dL (0-40) Non-HDL Cholesterol Calculated 124 mg/dL (0-129) HDL Cholesterol 58 mg/dL (40-60) Cholesterol/HDL Ratio 3.1 Thyroid Stimulating Hormone (TSH) 0.482 uIU/mL (0.358-3.74) Glucose (Fingerstick) 49 mg/dL (70-99) 132 mg/dL (70-99) Test 10/11/19 18:45 10/11/19 21:01 10/12/19 07:39 Troponin I Quantitative < 0.017 ng/mL (0.000-0.055) Glucose (Fingerstick) 117 mg/dL (70-99) 97 mg/dL (70-99) Laboratory Tests Test 10/11/19 11:30 10/11/19 12:55 10/11/19 15:14 10/11/19 16:29 White Blood Count 7.8 x10^3/uL (4.0-11.0) Red Blood Count 4.65 x10^6/uL (3.50-5.40) Hemoglobin 12.9 g/dL (12.0-15.5) Hematocrit 40.0 % (36.0-47.0) Mean Corpuscular Volume 86 fL (79-100) Mean Corpuscular Hemoglobin 28 pg (25-35) Mean Corpuscular Hemoglobin Concent 32 g/dL (31-37) Red Cell Distribution Width 16.4 % (11.5-14.5) Platelet Count 379 x10^3/uL (140-400) Neutrophils (%) (Auto) 60 % (31-73) Lymphocytes (%) (Auto) 30 % (24-48) Monocytes (%) (Auto) 7 % (0-9) Eosinophils (%) (Auto) 2 % (0-3) Basophils (%) (Auto) 1 % (0-3) Neutrophils # (Auto) 4.7 x10^3/uL (1.8-7.7) Lymphocytes # (Auto) 2.4 x10^3/uL (1.0-4.8) Monocytes # (Auto) 0.5 x10^3/uL (0.0-1.1) Eosinophils # (Auto) 0.1 x10^3/uL (0.0-0.7) Basophils # (Auto) 0.1 x10^3/uL (0.0-0.2) D-Dimer (Laura) < 0.27 ug/mlFEU Sodium Level 145 mmol/L (136-145) Potassium Level 4.2 mmol/L (3.5-5.1) Chloride Level 107 mmol/L (98-107) Carbon Dioxide Level 32 mmol/L (21-32) Anion Gap 6 (6-14) Blood Urea Nitrogen 13 mg/dL (7-20) Creatinine 0.8 mg/dL (0.6-1.0) Estimated GFR (Cockcroft-Gault) 87.9 BUN/Creatinine Ratio 16 (6-20) Glucose Level 107 mg/dL (70-99) Calcium Level 9.3 mg/dL (8.5-10.1) Total Bilirubin 0.2 mg/dL (0.2-1.0) Aspartate Amino Transf (AST/SGOT) 23 U/L (15-37) Alanine Aminotransferase (ALT/SGPT) 38 U/L (14-59) Alkaline Phosphatase 108 U/L (46-116) Troponin I Quantitative < 0.017 ng/mL (0.000-0.055) Total Protein 7.5 g/dL (6.4-8.2) Albumin 4.1 g/dL (3.4-5.0) Albumin/Globulin Ratio 1.2 (1.0-1.7) Triglycerides Level 86 mg/dL (0-150) Cholesterol Level 182 mg/dL (0-200) LDL Cholesterol, Calculated 107 mg/dL (0-100) VLDL Cholesterol, Calculated 17 mg/dL (0-40) Non-HDL Cholesterol Calculated 124 mg/dL (0-129) HDL Cholesterol 58 mg/dL (40-60) Cholesterol/HDL Ratio 3.1 Thyroid Stimulating Hormone (TSH) 0.482 uIU/mL (0.358-3.74) Glucose (Fingerstick) 49 mg/dL (70-99) 132 mg/dL (70-99) Test 10/11/19 18:45 10/11/19 21:01 10/12/19 07:39 Troponin I Quantitative < 0.017 ng/mL (0.000-0.055) Glucose (Fingerstick) 117 mg/dL (70-99) 97 mg/dL (70-99) Medications Current Medications Fentanyl Citrate (Fentanyl 2ml Vial) 50 mcg 1X ONCE IVP Last administered on 10/11/19at 12:11; Start 10/11/19 at 11:30; Stop 10/11/19 at 11:31; Status DC Nitroglycerin (Nitrostat) 0.4 mg PRN Q5MIN PRN SL CHEST PAIN; Start 10/11/19 at 15:00 Ondansetron HCl (Zofran) 4 mg PRN Q6HRS PRN IVP NAUSEA/VOMITING; Start 10/11/19 at 15:00 Amlodipine Besylate (Norvasc) 5 mg DAILY PO ; Start 10/12/19 at 09:00 Lisinopril (Prinivil) 10 mg DAILY PO ; Start 10/12/19 at 09:00 Insulin Human Lispro (HumaLOG) 0-7 UNITS TIDACHC SQ ; Start 10/11/19 at 16:30 Dextrose (Dextrose 50%-Water Syringe) 12.5 gm PRN Q15MIN PRN IV SEE COMMENTS; Start 10/11/19 at 15:45 Dextrose (Iv Dextrose 5%) 250 ml PRN Q15MIN PRN IV SEE COMMENTS; Start 10/11/19 at 15:45 Multi-Ingredient Mouthwash/Gargle (Gi Cocktail) 20 ml 1X ONCE SWSW Last administered on 10/11/19at 16:45; Start 10/11/19 at 15:45; Stop 10/11/19 at 15:46; Status DC Aspirin (Magy Aspirin) 325 mg 1X ONCE PO Last administered on 10/11/19at 16:44; Start 10/11/19 at 16:30; Stop 10/11/19 at 16:31; Status DC Aspirin (Ecotrin) 81 mg DAILYWBKFT PO ; Start 10/12/19 at 08:00 Lidocaine (Lidoderm) 1 patch DAILY TD Last administered on 10/11/19at 17:43; Start 10/11/19 at 17:00 Miscellaneous (Lidoderm Patch Removal) 1 ea QHS MC ; Start 10/11/19 at 21:00 Pantoprazole Sodium (Protonix) 40 mg 1X ONCE PO Last administered on 10/11/19at 20:34; Start 10/11/19 at 20:00; Stop 10/11/19 at 20:01; Status DC Pantoprazole Sodium (Protonix) 40 mg DAILYAC PO ; Start 10/12/19 at 07:30 Atorvastatin Calcium (Lipitor) 20 mg QHS PO Last administered on 10/11/19at 20:35; Start 10/11/19 at 21:00 Acetaminophen/ Hydrocodone Bitart (Lortab 5/325) 1 tab PRN Q6HRS PRN PO PAIN Last administered on 10/11/19at 20:35; Start 10/11/19 at 20:15 Active Scripts Active [facility] 5-325 Tablet (Acetaminophen/Hydrocodone Bitart) 1 Each Tablet 1 Tab PO PRN Q6HRS PRN Reported Amlodipine Besylate 5 Mg Tablet 5 Mg PO DAILY Lisinopril 10 Mg Tablet 1 Tab PO DAILY Jardiance (Empagliflozin) 10 Mg Tablet 10 Mg PO Metformin Hcl 1,000 Mg Tablet 1,000 Mg PO BIDWMEALS Vitals/I & O Vital Sign - Last 24 Hours 10/11/19 10/11/19 10/11/19 10/11/19 11:08 11:17 12:08 12:11 Temp 97.7 97.7 Pulse 88 82 82 Resp 18 B/P (MAP) 169/77 (107) 169/77 (107) 131/73 (92) Pulse Ox 98 98 98 O2 Delivery Room Air Room Air Room Air Room Air 10/11/19 10/11/19 10/11/19 10/11/19 12:34 13:04 13:34 14:04 Pulse 70 72 77 80 B/P (MAP) 132/62 (85) 129/56 (80) 129/62 (84) 134/67 (89) Pulse Ox 97 97 99 98 O2 Delivery Room Air Room Air Room Air Room Air 1/2310/11/19 10/11/19 10/11/19 14:34 15:04 15:36 16:05 Pulse 81 89 84 B/P (MAP) 146/70 (95) 145/65 (91) 150/71 (97) Pulse Ox 99 98 99 O2 Delivery Room Air Room Air Room Air Room Air 10/11/19 10/11/19 10/11/19 10/11/19 16:52 19:10 20:00 20:35 Temp 97.7 98.1 97.7 98.1 Pulse 86 73 Resp 18 19 B/P (MAP) 143/58 (86) 129/54 (79) Pulse Ox 99 98 O2 Delivery Room Air Room Air Room Air 10/11/19 10/11/19 10/12/19 21:35 23:10 03:10 Temp 98.1 98.1 98.1 98.1 Pulse 74 73 Resp 19 18 B/P (MAP) 110/57 (74) 124/57 (79) Pulse Ox 100 98 O2 Delivery Room Air Room Air Room Air Intake and Output 10/11/19 10/11/19 10/12/19 15:00 23:00 07:00 Intake Total 750 ml Balance 750 ml DALIA CABA MD Oct 12, 2019 08:55
[2019-10-12] MEDS ORDERED: amLODIPine BESYLATE 5 MG TABLET PO SCH (09:00)
[2019-10-12] MEDS ORDERED: LISINOPRIL 10 MG TABLET PO SCH (09:00)
[2019-10-12] MEDS: LIDOCAINE (700MG/PATCH) PATCH. TD SCH (09:32)
[2019-10-12] MEDS: INSULIN LISPRO 300 UNITS/3 ML VIAL. SQ SCH ×2 (09:33→11:30)
--- NOTE | 2019-10-12 09:53 | CARD ---
MR#: [id number] Date of Study: 10/12/2019 Ordering Physician: JONNY LIU, Referring Physician: JONNY LIU, Tech: Denisse Kelly APPROVED REPORT EXAM: Two-dimensional and M-mode echocardiogram with Doppler and color Doppler. Other Information Quality : AverageHR: 75bpm INDICATION Chest Pain RISK FACTORS Hypertension Hyperlipidemia Diabetes 2D DIMENSIONS Left Atrium(2D)2.7 (1.6-4.0cm)IVSd1.2 (0.7-1.1cm) Aortic Root(2D)2.4 (2.0-3.7cm)LVDd4.5 (3.9-5.9cm) LVOT Diameter2.0 (1.8-2.4cm)PWd1.1 (0.7-1.1cm) LVDs2.5 (2.5-4.0cm)FS (%) 45.8 % SV73.1 mlLVEF(%)77.2 (>50%) Aortic Valve AoV Peak Redd.191.6cm/sAoV VTI40.3cm AO Peak GR.14.7mmHgLVOT Peak Redd.100.5cm/s LVOT VTI 23.02cmAO Mean GR.8mmHg ARA (VMAX)1.69ja0ESV (VTI)1.80cm2 Mitral Valve MV E Jkonmmhu51.9cm/sMV DECEL [id number] MV A Wcrnriap65.9cm/sMV E Mean Gr.2mmHg MV XVF38geV/A Ratio1.1 MVA (PHT)3.16cm2 TDI E/Lateral E'9.0E/Medial E'12.7 Pulmonary Valve PV Peak Vdfsdles511.4cm/sPV Peak Grad.4mmHg Tricuspid Valve TR P. Uxnurzoe465tv/sRAP [id number] TR Peak Gr.58iiTwWSLS61piBw Pulmonary Vein S1 Rmimxbau17.8cm/sD2 Yqttvdmk39.9cm/s PVa [id number] LEFT VENTRICLE The left ventricle is normal size. There is mild concentric left ventricular hypertrophy. The left ve ntricular systolic function is normal. The ejection fraction is 55-60%. There is normal LV segmental wall motion. Transmitral Doppler flow pattern is Grade II-pseudonormal filling dynamics. RIGHT VENTRICLE The right ventricle is normal size. There is normal right ventricular wall thickness. The right ventr icular systolic function is normal. ATRIA The left atrium size is normal. The right atrium size is normal. The interatrial septum is intact wit h no evidence for an atrial septal defect or patent foramen ovale as noted on 2-D or Doppler imaging. AORTIC VALVE The aortic valve is calcified but opens well. Doppler and Color Flow revealed trace aortic regurgitat ion. There is no significant aortic valvular stenosis. MITRAL VALVE The mitral valve is normal in structure and function. There is no evidence of mitral valve prolapse. There is no mitral valve stenosis. Doppler and Color-flow revealed trace mitral regurgitation. TRICUSPID VALVE The tricuspid valve is not well visualized. Doppler and Color Flow revealed trace tricuspid regurgita tion with an estimated PAP of 28 mmHg. There is no tricuspid valve stenosis. PULMONIC VALVE The pulmonic valve is not well visualized. Doppler and Color Flow revealed no pulmonic valvular regur gitation. GREAT VESSELS The aortic root is normal in size. The IVC is normal in size and collapses >50% with inspiration. PERICARDIAL EFFUSION There is no evidence of significant pericardial effusion. Critical Notification Critical Value: No <Conclusion> The left ventricular systolic function is normal. The ejection fraction is 55-60%. There is normal LV segmental wall motion. Transmitral Doppler flow pattern is Grade II-pseudonormal filling dynamics. Trace mitral regurgitation. Trace tricuspid regurgitation with an estimated PAP of 28 mmHg. There is no evidence of significant pericardial effusion. Signed by : Jaiden Ha, Electronically Approved : 10/12/2019 09:52:31
[2019-10-12] MEDS ORDERED: HYDR-3164 PO (10:42)
[2019-10-12] MEDS ORDERED: ATOR20TA58 PO (10:42)
[2019-10-12] MEDS ORDERED: PANT40TA77 PO (10:42)
--- NOTE | 2019-10-12 10:46 | PDOC3 ---
Discharge Summary Visit Information Date of Admission: Oct 11, 2019 Date of Discharge: Oct 12, 2019 Admitting Diagnosis: Chest pain Final Diagnosis Problems Medical Problems: (1) Chest pain Status: Acute Brief Hospital Course Allergies Allergies Coded Allergies Type Severity Reaction Last Updated Verified Penicillins Allergy Unknown "I DONT KNOW MY MOPM SAYS I WAS" 08/31/19 Yes Uncoded Allergies Type Severity Reaction Last Updated Verified "MUSCLE RELAXER" Allergy Intermediate Unknown 08/31/19 Vital Signs Vital Signs Date Time Temp Pulse Resp B/P (MAP) Pulse Ox O2 Delivery O2 Flow Rate FiO2 10/12/19 09:32 73 136/74 10/12/19 07:00 98.5 16 99 Room Air 98.5 Lab Results Laboratory Tests Test 10/11/19 11:30 10/11/19 12:55 10/11/19 15:14 10/11/19 16:29 White Blood Count 7.8 x10^3/uL (4.0-11.0) Red Blood Count 4.65 x10^6/uL (3.50-5.40) Hemoglobin 12.9 g/dL (12.0-15.5) Hematocrit 40.0 % (36.0-47.0) Mean Corpuscular Volume 86 fL (79-100) Mean Corpuscular Hemoglobin 28 pg (25-35) Mean Corpuscular Hemoglobin Concent 32 g/dL (31-37) Red Cell Distribution Width 16.4 % (11.5-14.5) Platelet Count 379 x10^3/uL (140-400) Neutrophils (%) (Auto) 60 % (31-73) Lymphocytes (%) (Auto) 30 % (24-48) Monocytes (%) (Auto) 7 % (0-9) Eosinophils (%) (Auto) 2 % (0-3) Basophils (%) (Auto) 1 % (0-3) Neutrophils # (Auto) 4.7 x10^3/uL (1.8-7.7) Lymphocytes # (Auto) 2.4 x10^3/uL (1.0-4.8) Monocytes # (Auto) 0.5 x10^3/uL (0.0-1.1) Eosinophils # (Auto) 0.1 x10^3/uL (0.0-0.7) Basophils # (Auto) 0.1 x10^3/uL (0.0-0.2) D-Dimer (Laura) < 0.27 ug/mlFEU Sodium Level 145 mmol/L (136-145) Potassium Level 4.2 mmol/L (3.5-5.1) Chloride Level 107 mmol/L (98-107) Carbon Dioxide Level 32 mmol/L (21-32) Anion Gap 6 (6-14) Blood Urea Nitrogen 13 mg/dL (7-20) Creatinine 0.8 mg/dL (0.6-1.0) Estimated GFR (Cockcroft-Gault) 87.9 BUN/Creatinine Ratio 16 (6-20) Glucose Level 107 mg/dL (70-99) Calcium Level 9.3 mg/dL (8.5-10.1) Total Bilirubin 0.2 mg/dL (0.2-1.0) Aspartate Amino Transf (AST/SGOT) 23 U/L (15-37) Alanine Aminotransferase (ALT/SGPT) 38 U/L (14-59) Alkaline Phosphatase 108 U/L (46-116) Troponin I Quantitative < 0.017 ng/mL (0.000-0.055) Total Protein 7.5 g/dL (6.4-8.2) Albumin 4.1 g/dL (3.4-5.0) Albumin/Globulin Ratio 1.2 (1.0-1.7) Triglycerides Level 86 mg/dL (0-150) Cholesterol Level 182 mg/dL (0-200) LDL Cholesterol, Calculated 107 mg/dL (0-100) VLDL Cholesterol, Calculated 17 mg/dL (0-40) Non-HDL Cholesterol Calculated 124 mg/dL (0-129) HDL Cholesterol 58 mg/dL (40-60) Cholesterol/HDL Ratio 3.1 Thyroid Stimulating Hormone (TSH) 0.482 uIU/mL (0.358-3.74) Glucose (Fingerstick) 49 mg/dL (70-99) 132 mg/dL (70-99) Test 10/11/19 18:45 10/11/19 21:01 10/12/19 07:39 10/12/19 10:00 Troponin I Quantitative < 0.017 ng/mL (0.000-0.055) < 0.017 ng/mL (0.000-0.055) Glucose (Fingerstick) 117 mg/dL (70-99) 97 mg/dL (70-99) C-Reactive Protein, Quantitative 1.1 mg/L (0-3.3) Laboratory Tests Test 10/11/19 11:30 10/11/19 12:55 10/11/19 15:14 10/11/19 16:29 White Blood Count 7.8 x10^3/uL (4.0-11.0) Red Blood Count 4.65 x10^6/uL (3.50-5.40) Hemoglobin 12.9 g/dL (12.0-15.5) Hematocrit 40.0 % (36.0-47.0) Mean Corpuscular Volume 86 fL (79-100) Mean Corpuscular Hemoglobin 28 pg (25-35) Mean Corpuscular Hemoglobin Concent 32 g/dL (31-37) Red Cell Distribution Width 16.4 % (11.5-14.5) Platelet Count 379 x10^3/uL (140-400) Neutrophils (%) (Auto) 60 % (31-73) Lymphocytes (%) (Auto) 30 % (24-48) Monocytes (%) (Auto) 7 % (0-9) Eosinophils (%) (Auto) 2 % (0-3) Basophils (%) (Auto) 1 % (0-3) Neutrophils # (Auto) 4.7 x10^3/uL (1.8-7.7) Lymphocytes # (Auto) 2.4 x10^3/uL (1.0-4.8) Monocytes # (Auto) 0.5 x10^3/uL (0.0-1.1) Eosinophils # (Auto) 0.1 x10^3/uL (0.0-0.7) Basophils # (Auto) 0.1 x10^3/uL (0.0-0.2) D-Dimer (Laura) < 0.27 ug/mlFEU Sodium Level 145 mmol/L (136-145) Potassium Level 4.2 mmol/L (3.5-5.1) Chloride Level 107 mmol/L (98-107) Carbon Dioxide Level 32 mmol/L (21-32) Anion Gap 6 (6-14) Blood Urea Nitrogen 13 mg/dL (7-20) Creatinine 0.8 mg/dL (0.6-1.0) Estimated GFR (Cockcroft-Gault) 87.9 BUN/Creatinine Ratio 16 (6-20) Glucose Level 107 mg/dL (70-99) Calcium Level 9.3 mg/dL (8.5-10.1) Total Bilirubin 0.2 mg/dL (0.2-1.0) Aspartate Amino Transf (AST/SGOT) 23 U/L (15-37) Alanine Aminotransferase (ALT/SGPT) 38 U/L (14-59) Alkaline Phosphatase 108 U/L (46-116) Troponin I Quantitative < 0.017 ng/mL (0.000-0.055) Total Protein 7.5 g/dL (6.4-8.2) Albumin 4.1 g/dL (3.4-5.0) Albumin/Globulin Ratio 1.2 (1.0-1.7) Triglycerides Level 86 mg/dL (0-150) Cholesterol Level 182 mg/dL (0-200) LDL Cholesterol, Calculated 107 mg/dL (0-100) VLDL Cholesterol, Calculated 17 mg/dL (0-40) Non-HDL Cholesterol Calculated 124 mg/dL (0-129) HDL Cholesterol 58 mg/dL (40-60) Cholesterol/HDL Ratio 3.1 Thyroid Stimulating Hormone (TSH) 0.482 uIU/mL (0.358-3.74) Glucose (Fingerstick) 49 mg/dL (70-99) 132 mg/dL (70-99) Test 10/11/19 18:45 10/11/19 21:01 10/12/19 07:39 10/12/19 10:00 Troponin I Quantitative < 0.017 ng/mL (0.000-0.055) < 0.017 ng/mL (0.000-0.055) Glucose (Fingerstick) 117 mg/dL (70-99) 97 mg/dL (70-99) C-Reactive Protein, Quantitative 1.1 mg/L (0-3.3) Brief Hospital Course Ms May is a 63 yo AA F w/ PMHx HTN, Hyperlipidemia, Peripheral neuropathy, Anxiety, Depression, Rheumatoid arthritis, Diabetes who was driven to ED by her son for substernal chest pain. Patient reports pain began 1 week ago. Describes as stabbing pain in her central chest 02/26. Is significantly worse with applying pressure to the central chest and with eating. Lexiscan February of 2019 showed subtle area of reversible ischemia involving the distal inferior wall. Toxey to be low risk overall and no other workup was conducted. Patient denies any associated dizziness, diaphoresis, SOA, or palpitations. No radiation to her jaw or arm, has numbness and tingling related to polyneuropathy EKG NSR, rate 84. No acute ST t wave changes and troponin WNL. CXR clear. Due to her high risk ACS with DM2 and RA, admitted for observation with cardiology consultation. Pain improved with protonix and hydrocodone. Had echocardiogram The left ventricular systolic function is normal. The ejection fraction is 55-60%. There is normal LV segmental wall motion. Transmitral Doppler flow pattern is Grade II-pseudonormal filling dynamics. Trace mitral regurgitation. Trace tricuspid regurgitation with an estimated PAP of 28 mmHg. There is no evidence of significant pericardial effusion. Ms May is a 63 yo AA F w/ PMHx HTN, Hyperlipidemia, Peripheral neuropathy, Anxiety, Depression, Rheumatoid arthritis, Diabetes who was driven to ED by her son for substernal chest pain. Patient reports pain began 1 week ago. Describes as stabbing pain in her central chest 6/10. Is significantly worse with applying pressure to the central chest and with eating. Lexiscan February of 2019 showed subtle area of reversible ischemia involving the distal inferior wall. Toxey to be low risk overall and no other workup was conducted. Patient denies any associated dizziness, diaphoresis, SOA, or palpitations. No radiation to her jaw or arm, has numbness and tingling related to polyneuropathy EKG NSR, rate 84. No acute ST t wave changes and troponin WNL. CXR clear. Due to her high risk ACS with DM2 and RA, admitted for observation with cardiology consultation. Consults: Cardiology Pain improved with protonix and hydrocodone. Had echocardiogram The left ventricular systolic function is normal. The ejection fraction is 55-60%. There is normal LV segmental wall motion. Transmitral Doppler flow pattern is Grade II-pseudonormal filling dynamics. Trace mitral regurgitation. Trace tricuspid regurgitation with an estimated PAP of 28 mmHg. There is no evidence of significant pericardial effusion. Problem List Chest pain - high risk ACS. trop and EKG negative. Most probably costochondritis in origin given the reproducibility. MPI 2019 subtle area of reversible ischemia involving the distal inferior wall. Hypertension; controlled - cont meds Hyperlipidemia - cont statin Diabetes, II - A1c is 6.8 from June 2019. Sliding scale in house Bicuspid aortic valve - per echo in [facility] records RA - on xeemir Depression/anxiety - will cont her home medications. I have reviewed them with her but she does not know any of her meds. Greater than 30 minutes spent on d/c Discharge Information Condition at Discharge: Improved Follow Up: Weeks (1) Disposition/Orders: D/C to Home Scheduled Amlodipine Besylate (Amlodipine Besylate) 5 Mg Tablet, 5 MG PO DAILY, (Reported) Entered as Reported by: EMMA DAVIS on 08/31/192016 Last Action: Continued on 10/11/19 154 by DALIA CABA MD Atorvastatin Calcium (Atorvastatin Calcium) 20 Mg Tablet, 20 MG PO QHS for HLD for 30 Days, #30 Prescribed by: DALIA CABA MD on 10/12/19 1042 Lisinopril (Lisinopril) 10 Mg Tablet, 1 TAB PO DAILY, #30 Ref 5 (Reported) Entered as Reported by: EMMA DAVIS on 08/31/192016 Last Action: Continued on 10/11/191540 by DALIA CABA MD Metformin Hcl (Metformin Hcl) 1,000 Mg Tablet, 1,000 MG PO BIDWMEALS, (Reported) Entered as Reported by: EMMA DAVIS on 08/31/192015 Pantoprazole Sodium (Pantoprazole Sodium ) 40 Mg Tablet.dr, 40 MG PO DAILYAC for GERD for 30 Days, #30 Prescribed by: DALIA CABA MD on 10/12/19 1042 Scheduled PRN Hydrocodone/Apap 5-325 ([place] 5-325 Tablet) 1 Each Tablet, 1 TAB PO PRN Q6HRS PRN for PAIN for 6 Days, #15 Ref 0 Prescribed by: DALIA CABA MD on 10/12/19 1043 Miscellaneous Medications Empagliflozin (Jardiance) 10 Mg Tablet, 10 MG PO, (Reported) Entered as Reported by: EMMA DAVIS on 08/31/192015 DALIA CABA MD Oct 12, 2019 10:46
[2019-10-12 11:00] VITALS: BP 124/65
[2019-10-12] MEDS: HYDROcodone/APAP 5/325MG 1 TAB TABLET PO PRN (12:16)
--- NOTE | 2019-10-12 12:33 | PDOC ---
PROGRESS NOTES Subjective Subjective Continues to complain of reproducible chest pain Objective Objective Vital Signs Date Time Temp Pulse Resp B/P (MAP) Pulse Ox O2 Delivery O2 Flow Rate FiO2 10/12/19 12:16 98 Room Air 10/12/19 11:00 97.2 71 16 124/65 (84) 97.2 Intake and Output 10/12/19 07:00 Intake Total 750 ml Balance 750 ml Intake Oral 750 ml # Voids 1 Physical Exam Abdomen: Normal bowel sounds, Soft, No tenderness, No hepatosplenomegaly, No masses Extremities: No clubbing, No cyanosis, No edema, Normal pulses, No tenderness/swelling General: Alert, Oriented X3, Cooperative, No acute distress HEENT: Atraumatic, PERRLA, EOMI, Mucous membr. moist/pink Lungs: Clear to auscultation, Normal air movement MUSCULOSKELETAL: Osteoarthritic changes both hands Neuro: Normal gait, Normal speech, Strength at 5/5 X4 ext, Normal tone, Sensation intact, Cranial nerves 3-12 NL, Reflexes 2+ Psych/Mental Status: Mental status NL, Mood NL Skin: No rashes, No breakdown, No significant lesion Assessment Assessment 1. Chest pain, atypical and most probably musculoskeletal since this is reproducible to palpation. Myocardial infarction has been ruled out. 2-D echo showed normal LV function without any wall motion abnormalities. Follow-up with primary fur drummer. 2. Hypertension; controlled 3. Hyperlipidemia: Continue statin therapy 4. Diabetes, II: Per IM Plan Plan of Care Problems Medical Problems: (1) Chest pain Status: Acute Comment Review of Relevant I have reviewed the following items carolynn (where applicable) has been applied. Labs Laboratory Tests Test 10/11/19 12:55 10/11/19 15:14 10/11/19 16:29 10/11/19 18:45 D-Dimer (Laura) < 0.27 ug/mlFEU Sodium Level 145 mmol/L (136-145) Potassium Level 4.2 mmol/L (3.5-5.1) Chloride Level 107 mmol/L (98-107) Carbon Dioxide Level 32 mmol/L (21-32) Anion Gap 6 (6-14) Blood Urea Nitrogen 13 mg/dL (7-20) Creatinine 0.8 mg/dL (0.6-1.0) Estimated GFR (Cockcroft-Gault) 87.9 BUN/Creatinine Ratio 16 (6-20) Glucose Level 107 mg/dL (70-99) Calcium Level 9.3 mg/dL (8.5-10.1) Total Bilirubin 0.2 mg/dL (0.2-1.0) Aspartate Amino Transf (AST/SGOT) 23 U/L (15-37) Alanine Aminotransferase (ALT/SGPT) 38 U/L (14-59) Alkaline Phosphatase 108 U/L (46-116) Troponin I Quantitative < 0.017 ng/mL (0.000-0.055) < 0.017 ng/mL (0.000-0.055) Total Protein 7.5 g/dL (6.4-8.2) Albumin 4.1 g/dL (3.4-5.0) Albumin/Globulin Ratio 1.2 (1.0-1.7) Triglycerides Level 86 mg/dL (0-150) Cholesterol Level 182 mg/dL (0-200) LDL Cholesterol, Calculated 107 mg/dL (0-100) VLDL Cholesterol, Calculated 17 mg/dL (0-40) Non-HDL Cholesterol Calculated 124 mg/dL (0-129) HDL Cholesterol 58 mg/dL (40-60) Cholesterol/HDL Ratio 3.1 Thyroid Stimulating Hormone (TSH) 0.482 uIU/mL (0.358-3.74) Glucose (Fingerstick) 49 mg/dL (70-99) 132 mg/dL (70-99) Test 10/11/19 21:01 10/12/19 07:39 10/12/19 10:00 10/12/19 11:51 Glucose (Fingerstick) 117 mg/dL (70-99) 97 mg/dL (70-99) 153 mg/dL (70-99) Erythrocyte Sedimentation Rate 7 (0-25) Troponin I Quantitative < 0.017 ng/mL (0.000-0.055) C-Reactive Protein, Quantitative 1.1 mg/L (0-3.3) Medications Current Medications Acetaminophen/ Hydrocodone Bitart (Lortab 5/325) 1 tab PRN Q6HRS PRN PO PAIN Last administered on 10/12/19at 12:16; Start 10/11/19 at 20:15 Amlodipine Besylate (Norvasc) 5 mg DAILY PO Last administered on 10/12/19at 09:32; Start 10/12/19 at 09:00 Aspirin (Magy Aspirin) 325 mg 1X ONCE PO Last administered on 10/11/19at 16:44; Start 10/11/19 at 16:30; Stop 10/11/19 at 16:31; Status DC Aspirin (Ecotrin) 81 mg DAILYWBKFT PO Last administered on 10/12/19at 09:32; Start 10/12/19 at 08:00 Atorvastatin Calcium (Lipitor) 20 mg QHS PO Last administered on 10/11/19at 20:35; Start 10/11/19 at 21:00 Dextrose (Dextrose 50%-Water Syringe) 12.5 gm PRN Q15MIN PRN IV SEE COMMENTS; Start 10/11/19 at 15:45 Dextrose (Iv Dextrose 5%) 250 ml PRN Q15MIN PRN IV SEE COMMENTS; Start 10/11/19 at 15:45 Insulin Human Lispro (HumaLOG) 0-7 UNITS TIDACHC SQ ; Start 10/11/19 at 16:30 Lidocaine (Lidoderm) 1 patch DAILY TD Last administered on 10/12/19at 09:32; Start 10/11/19 at 17:00 Lisinopril (Prinivil) 10 mg DAILY PO Last administered on 10/12/19at 09:32; Start 10/12/19 at 09:00 Miscellaneous (Lidoderm Patch Removal) 1 ea QHS MC ; Start 10/11/19 at 21:00 Multi-Ingredient Mouthwash/Gargle (Gi Cocktail) 20 ml 1X ONCE SWSW Last administered on 10/11/19at 16:45; Start 10/11/19 at 15:45; Stop 10/11/19 at 15:46; Status DC Nitroglycerin (Nitrostat) 0.4 mg PRN Q5MIN PRN SL CHEST PAIN; Start 10/11/19 at 15:00 Ondansetron HCl (Zofran) 4 mg PRN Q6HRS PRN IVP NAUSEA/VOMITING; Start 10/11/19 at 15:00 Pantoprazole Sodium (Protonix) 40 mg 1X ONCE PO Last administered on 10/11/19at 20:34; Start 10/11/19 at 20:00; Stop 10/11/19 at 20:01; Status DC Pantoprazole Sodium (Protonix) 40 mg DAILYAC PO Last administered on 10/12/19at 09:37; Start 10/12/19 at 07:30 Vitals/I & O Vital Sign - Last 24 Hours 10/11/19 10/11/19 10/11/19 10/11/19 12:34 13:04 13:34 14:04 Pulse 70 72 77 80 B/P (MAP) 132/62 (85) 129/56 (80) 129/62 (84) 134/67 (89) Pulse Ox 97 97 99 98 O2 Delivery Room Air Room Air Room Air Room Air 10/11/19 10/11/19 10/11/19 10/11/19 14:34 15:04 15:36 16:05 Pulse 81 89 84 B/P (MAP) 146/70 (95) 145/65 (91) 150/71 (97) Pulse Ox 99 98 99 O2 Delivery Room Air Room Air Room Air Room Air 10/11/19 10/11/19 10/11/19 10/11/19 16:52 19:10 20:00 20:35 Temp 97.7 98.1 97.7 98.1 Pulse 86 73 Resp 18 19 B/P (MAP) 143/58 (86) 129/54 (79) Pulse Ox 99 98 O2 Delivery Room Air Room Air Room Air 10/11/19 10/11/19 10/12/19 10/12/19 21:35 23:10 03:10 07:00 Temp 98.1 98.1 98.5 98.1 98.1 98.5 Pulse 74 73 73 Resp 19 18 16 B/P (MAP) 110/57 (74) 124/57 (79) 136/74 (94) Pulse Ox 100 98 99 O2 Delivery Room Air Room Air Room Air Room Air 10/12/19 10/12/19 10/12/19 10/12/19 08:00 09:32 09:32 11:00 Temp 97.2 97.2 Pulse 73 73 71 Resp 16 B/P (MAP) 136/74 136/74 124/65 (84) Pulse Ox 98 O2 Delivery Room Air Room Air 10/12/19 12:16 Pulse Ox 98 O2 Delivery Room Air Intake and Output 10/11/19 10/11/19 10/12/19 15:00 23:00 07:00 Intake Total 750 ml Balance 750 ml HO SHANKS MD Oct 12, 2019 12:33
--- NOTE | 2019-10-12 12:37 | NUR ---
Pt escorted out with Adriana DEL VALLE, via wheelchair with belongings, IV and Telemonitor discontinued.
== END 2019-10-12 12:25 | disposition home or self-care (01) ==
LOC: ER 11:07 → 6 SOUTH 13:30
PROVIDERS: ADMIT Internal Medicine; ATTEND Internal Medicine
DX: R07.89 Other chest pain (principal); I10 Essential (primary) hypertension; E78.5 Hyperlipidemia, unspecified; E11.9 Type 2 diabetes mellitus without complications; M19.90 Unspecified osteoarthritis, unspecified site; F41.9 Anxiety disorder, unspecified; F32.9 Major depressive disorder, single episode, unspecified; G62.9 Polyneuropathy, unspecified; Z90.49 Acquired absence of other specified parts of digestive tract; Z98.891 History of uterine scar from previous surgery; Z79.84 Long term (current) use of oral hypoglycemic drugs
CPT/HCPCS: 36415; 71045; 80053; 80061; 82962; 84443; 84484; 85025; 85379; 85651; 86140; 93005; 93306; 96374; 99284; G0378; J1815; J3010; G0379

== ENCOUNTER 2020-03-23 09:37 | Emergency (ER) | payer MEDICARE, MEDICAID ==
[~2020-03-23] VITALS: Ht 154.9 cm; Wt 95.5 kg
[~2020-03-23 09:37] MED LIST changes: +ATOR20TA58 PO; +PANT40TA77 PO
[2020-03-23 09:55] VITALS: BP 160/84
[2020-03-23] MEDS ORDERED: CEPH-264 PO (10:38)
[2020-03-23] MEDS ORDERED: METH4TAB2 PO (10:39)
--- NOTE | 2020-03-23 10:39 | PHYS DOC ---
Past Medical History Past Medical History: Arthritis, Diabetes-Type II, Hypertension, Migraines, Other Additional Past Medical Histor: NEUROPATHY,CHRONIC BACK PAIN,IRON DEFFICIENCIES Past Surgical History: Appendectomy, , Other Additional Past Surgical Histo: PORT REMOVED,R SHOULDER,R WRIST,BACK SX Smoking Status: Never Smoker Alcohol Use: None Drug Use: None General Adult EDM: Chief Complaint: SKIN RASH/ABSCESS HPI: HPI: Patient is a 64 year old female who presents with rash. Patient states that for the last week she has been developing these lesions on her arms, hips, face. She has a couple on her abdomen as well. They are small raised fluid-filled bumps. She states that she has been putting Benadryl and hydrocodone cream on it without any relief. Her primary care physician gave her Decadron shot but did also did not help. She had her house checked for bedbugs and does not have any bedbugs. She continues to get these lesions. She does not get them in her clothing lines. She does have a garden that she works out in. She states that they are painful and itchy. Review of Systems: Review of Systems: General: Denies fever, chills, sweats, fatigue Eyes: Denies drainage, blurred vision, eye redness HENT: Denies rhinorrhea, sore throat, earache Respiratory: Denies cough, shortness of breath, wheezing Cardiac: Denies edema, palpitations, chest pain GI: Denies abdominal pain, Nausea, vomiting MSK: Denies back pain, neck pain Skin: Denies jaundice reports rash Neuro: Denies headache, dizziness Psychiatric: Denies SI/HI Heart Score: Risk Factors: Risk Factors: DM, Current or recent (<one month) smoker, HTN, HLP, family history of CAD, obesity. Risk Scores: Score 0 - 3: 2.5% MACE over next 6 weeks - Discharge Home Score 4 - 6: 20.3% MACE over next 6 weeks - Admit for Clinical Observation Score 7 - 10: 72.7% MACE over next 6 weeks - Early Invasive Strategies Allergies: Allergies: Allergies Coded Allergies Type Severity Reaction Last Updated Verified Penicillins Allergy Unknown "I DONT KNOW MY MOPM SAYS I WAS" 08/31/19 Yes Uncoded Allergies Type Severity Reaction Last Updated Verified "MUSCLE RELAXER" Allergy Intermediate Unknown 08/31/19 Physical Exam: PE: General: Awake, alert, NAD. Well Nourished, well hydrated. Cooperative HEENT: Atraumatic, EOMI, PERRL, airway patent, moist oral mucosa Neck: Supple, trachea midline Respiratory: CTA bilaterally, normal effort, no wheezing/crackles CV: RRR, no murmur, cap refill <2 GI: Soft, nondistended, nontender, no masses MSK: No obvious deformities Skin: Warm, dry, intact. Multiple 2 mm raised erythematous fluid-filled bumps on bilateral arms, abdomen, hips Neuro: A&O x3, speech NL, sensory and motor grossly intact, no focal deficits Psych: Normal affect, normal mood, not suicidal or homicidal Current Patient Data: Vital Signs: Vital Signs Date Time Temp Pulse Resp B/P (MAP) Pulse Ox O2 Delivery O2 Flow Rate FiO2 03/23/20 09:55 98.8 97 19 160/84 (109) 96 Room Air 98.8 EKG: EKG: [] Radiology/Procedures: Radiology/Procedures: [] Course & Med Decision Making: Course & Med Decision Making Pertinent Labs and Imaging studies reviewed. (See chart for details) Patient is 64-year-old female presents to the emergency room complaining of a three-week rash. At this time it is unclear what is causing the rash. It does appear to be somewhat similar to folliculitis. It does not appear to look like scabies, herpes virus, bedbugs. Will place her on steroids and antibiotics. I have recommended that she see a public relations account executive. Patient's test results and vitals while in the ED were fully reviewed and discussed with the patient. Patient is stable and at this time does not need admission to the hospital. We have discussed strict return precautions and the importance of following up with their Primary Care Physician. Patient stated understanding and was given an opportunity to ask any questions. Patient is in agreement with plan. Kamon Disclaimer: Rafaela Disclaimer: This electronic medical record was generated, in whole or in part, using a voice recognition dictation system. Departure Departure Impression: Primary Impression: Rash and nonspecific skin eruption Disposition: HOME, SELF-CARE Condition: STABLE Referrals: ASAD MALIK (PCP) Patient Instructions: Rash Scripts Methylprednisolone (MEDROL) 4 Mg Tab.ds.pk 1 PKG PO UD for inflammation, #1 PKG Prov: IRENE POLK MD 03/23/20 Cephalexin (KEFLEX) 500 Mg Capsule 1 CAP PO Q8HRS for 10 Days, #30 CAP 0 Refills Prov: IRENE POLK MD 03/23/20 Justicifation of Admission Dx: Justifications for Admission: Justification of Admission Dx: No IRENE POLK MD Mar 23, 2020 10:39
== END 2020-03-23 10:58 | disposition home or self-care (01) ==
LOC: ER 09:37
DX: R21 Rash and other nonspecific skin eruption (principal); E11.40 Type 2 diabetes mellitus with diabetic neuropathy, unspecified; I10 Essential (primary) hypertension; G43.909 Migraine, unspecified, not intractable, without status migrainosus; G89.29 Other chronic pain; Z88.0 Allergy status to penicillin; Z88.8 Allergy status to other drugs, medicaments and biological substances
CPT/HCPCS: 99283

== ENCOUNTER 2020-05-16 13:38 | Emergency (ER) | payer MEDICARE, MEDICAID ==
[~2020-05-16 13:38] MED LIST changes: +CEPH-264 PO; +METH4TAB2 PO
== END 2020-05-16 15:56 | disposition left against medical advice (07) ==
LOC: ER 13:38
DX: R21 Rash and other nonspecific skin eruption (principal); Z53.21 Procedure and treatment not carried out due to patient leaving prior to being seen by health care provider

== ENCOUNTER 2020-09-05 00:28 | Emergency (ER) | payer MEDICARE, MEDICAID ==
[~2020-09-05] VITALS: Ht 154.9 cm; Wt 97.7 kg
[~2020-09-05 00:28] MED LIST changes: +AMLO-186 PO; -AMLO5TAB10 PO; +GLIM4TAB8 PO
[2020-09-05 00:30] VITALS: BP 141/78
--- NOTE | 2020-09-05 01:33 | PHYS DOC ---
Past Medical History Past Medical History: Arthritis, Diabetes-Type II, Hypertension, Migraines, Other Additional Past Medical Histor: NEUROPATHY,CHRONIC BACK PAIN,IRON DEFFICIENCIES Past Surgical History: Appendectomy, , Other Additional Past Surgical Histo: PORT REMOVED,R SHOULDER,R WRIST,BACK SX Smoking Status: Never Smoker Alcohol Use: Occasionally Drug Use: None Social History Narrative: Verbalized smokes weed occasionally for her pain General Adult EDM: Chief Complaint: ABSCESS HPI: HPI: 64 yo F PMH IDDM and HTH presents to the ed with c/o "yellow drainage" from a red, painful lesion on her right arm with surrounding "hardness" and pain x4 days. Pt thinks she was bit by a bug. Started draining over the past 24 hours. Tetanus is up-to-date. No known history of MRSA. Review of Systems: Review of Systems: Constitutional: Denies fever or chills. [] Eyes: Denies change in visual acuity. [] HENT: Denies nasal congestion or sore throat. [] Respiratory: Denies cough or shortness of breath. [] Cardiovascular: Denies chest pain or edema. [] GI: Denies abdominal pain, nausea, vomiting, bloody stools or diarrhea. [] : Denies dysuria. [] Musculoskeletal: Denies back pain or joint pain. [] Integument: Denies crepitus or skin color changes Neurologic: Denies headache, focal weakness or sensory changes. [] Endocrine: Denies polyuria or polydipsia. [] Lymphatic: Denies swollen glands. [] Psychiatric: Denies depression or anxiety. [] Heart Score: Risk Factors: Risk Factors: DM, Current or recent (<one month) smoker, HTN, HLP, family history of CAD, obesity. Risk Scores: Score 0 - 3: 2.5% MACE over next 6 weeks - Discharge Home Score 4 - 6: 20.3% MACE over next 6 weeks - Admit for Clinical Observation Score 7 - 10: 72.7% MACE over next 6 weeks - Early Invasive Strategies Allergies: Allergies: Allergies Coded Allergies Type Severity Reaction Last Updated Verified cyclobenzaprine Allergy Severe Swelling 06/22/20 Yes Penicillins Allergy Unknown "I DONT KNOW MY MOPM SAYS I WAS" 08/31/19 Yes Uncoded Allergies Type Severity Reaction Last Updated Verified "MUSCLE RELAXER" Allergy Intermediate Unknown 08/31/19 Physical Exam: PE: Constitutional: Well developed, well nourished, no acute distress, non-toxic appearance. HENT: Normocephalic, atraumatic, Eyes: EOMI, conjunctiva normal, no discharge. Neck: Normal range of motion, supple, Cardiovascular: S1/2 present, regular rhythm Lungs & Thorax: Speaking in full sentences, bilateral equal chest rise, no tachypnea or increased work of breathing Abdomen: soft, no tenderness, Skin: Warm, dry, 1x1cm erythematous lesions with scant clear fluid/ulcer base (abscess apex appears to be removed) with nearby induration/erythema skin 2cm circumferentially, no fluctuance or cellulitis Back: No tenderness, no CVA tenderness. [] Extremities: No tenderness, no cyanosis, no edema Neurologic: Alert and oriented X 3, normal motor function, normal sensory function, no focal deficits noted. [] Psychologic: Affect normal, judgement normal, mood normal. [] Current Patient Data: Vital Signs: Vital Signs Date Time Temp Pulse Resp B/P (MAP) Pulse Ox O2 Delivery O2 Flow Rate FiO2 09/05/20 00:30 98.1 99 18 141/78 (99) 100 Room Air 98.1 EKG: EKG: [] Radiology/Procedures: Radiology/Procedures: [] Course & Med Decision Making: Course & Med Decision Making Pertinent Labs and Imaging studies reviewed. (See chart for details) Concern for small abscess that had already drained with surrounding inflammation and cellulitis. Will discharge home with strict ED return precautions were given for worsening rash, fever or streaking. Encouraged urgent outpatient follow-up with PMD and to 3 days for wound check. Life-threatening processes were considered but are low suspicion at this time, given history, physical exam and ED workup. Pt was educated on all prescription medications and adverse effects. All patient's questions were answered and pt was stable at time of discharge. Life/limb-threatening differential includes but is not limited to, erythema multiforme, serrano-randall syndrome, toxic epidermal necrolysis, staphylococcal scalded skin syndrome, necrotizing fasciitis/myositis/cellulitis, purpura ful minans, heparin or warfarin induced skin necrosis, angioedema, anaphylaxis drug rash, disseminated intravascular coagulation, disseminated gonococcal disease, vasculitis, septicemia, petechial disorder or coagulopathy, viral exanthem, Kawasaki's disease. I spoken with the patient and her caregivers. I explained the patient's condition, diagnoses and treatment plan based on the information available to me at this time. I have answered the patient and her caregiver's questions and addressed any concerns. The patient and her caregivers have a good understanding of patient's diagnosis, condition and treatment plan as can be expected at this point. Vital signs have been stable. Patient's condition is stable and appropriate for discharge from the emergency department. Patient will pursue further outpatient evaluation with primary care physician or other designated or consulting physician as outlined in the discharge instructions. The patient and/or caregivers are agreeable to this plan of care and follow-up instructions have been explained in detail. The patient and/or caregivers have received these instructions in written form and have expressed an understanding of the discharge instructions. The patient and/or caregivers are aware that any significant change of condition or worsening of symptoms should prompt immediate return to this or the closest emergency department or call to 911. Rafaela Disclaimer: Rafaela Disclaimer: This electronic medical record was generated, in whole or in part, using a voice recognition dictation system. Departure Departure Impression: Primary Impression: Cellulitis Disposition: 01 DC HOME SELF CARE/HOMELESS Condition: STABLE Referrals: ASAD MALIK (PCP) wound check in 2-3 days Patient Instructions: Cellulitis Additional Instructions: EMERGENCY DEPARTMENT GENERAL DISCHARGE INSTRUCTIONS Thank you for coming to [facility] Emergency Department (ED) today and trusting us with you care. We trust that you had a positive experience in our Emergency Department. If you wish to speak to the department management, you may call the Director at [phone]. YOUR FOLLOW UP INSTRUCTIONS ARE FOLLOWS: 1. Do you have a private Doctor? If you do not have a private doctor, please ask for a resource list of physicians or clinics that may be able to assist you with follow up care. 2. The Emergency Physicain has interpreted your x-rays. The X-Ray specialist will also review them. If there is a change in the findings, you will be notified in 48 hours when at all possible. 3. A lab test or culture has been done, your results will be reviewed and you will be notified if you need a change in treatment. ADDITIONAL INSTRUCTIONS AND INFORMATION: 1. Your care today has been supervised by a physician who is specially trained in emergency care. Many problems require more than one evaluation for a complete diagnosis and treatment. We recommend that you schedule your follow up appointment as recommended to ensure complete treatment of you illness or injury. If you are unable to obtain follow up care and continue to have a problem, or if your condition worsens, we recommend that you return to the ED. 2. We are not able to safely determine your condition over the phone nor are we able to give sound medical advice over the phone. For these safety reasons, if you call for medical advice we will ask you to come to the ED for further evaluation. 3. If you have any questions regarding these discharge instructions please call the ED at [phone]. SAFETY INFORMATION: In the interest of safety, wellness, and injury prevention; we encourage you to wear your sealbelt, if you smoke; quite smoking, and we encourage family to use a protective helmet for bicycling and other sporting events that present an increased risk for head injury. IF YOUR SYMPTOMS WORSEN OR NEW SYMPTOMS DEVELOP, OR YOU HAVE CONCERNS ABOUT YOUR CONDITION; OR IF YOUR CONDITION WORSENS WHILE YOU ARE WAITING FOR YOUR FOLLOW UP APPOINTMENT; EITHER CONTACT YOUR PRIMARY CARE DOCTOR, THE PHYSICIAN WHOSE NAME AND NUMBER YOU WERE GIVEN, OR RETURN TO THE ED IMMEDIATELY. Scripts Clindamycin Hcl (CLINDAMYCIN HCL) 150 Mg Capsule 3 CAP PO TID for 7 Days, #63 CAP Prov: ISBAELLA FIGUEROA DO 09/05/20 ISABELLA FIGUEROA DO Sep 05, 2020 01:33
[2020-09-05] MEDS ORDERED: CLIN150C14 PO (02:41)
== END 2020-09-05 01:50 | disposition home or self-care (01) ==
LOC: ER 00:28
DX: L02.413 Cutaneous abscess of right upper limb (principal); L53.9 Erythematous condition, unspecified; R50.9 Fever, unspecified; M19.90 Unspecified osteoarthritis, unspecified site; I10 Essential (primary) hypertension; G43.909 Migraine, unspecified, not intractable, without status migrainosus; E11.40 Type 2 diabetes mellitus with diabetic neuropathy, unspecified; G89.29 Other chronic pain; Z98.890 Other specified postprocedural states; Z90.89 Acquired absence of other organs; Z88.0 Allergy status to penicillin; Z88.8 Allergy status to other drugs, medicaments and biological substances
CPT/HCPCS: 99283

== ENCOUNTER 2020-09-30 14:55 | Emergency (ER) | payer MEDICARE, MEDICAID ==
[~2020-09-30] VITALS: Ht 154.9 cm; Wt 90.0 kg
[~2020-09-30 14:55] MED LIST changes: +CLIN150C15 PO
--- NOTE | 2020-09-30 15:48 | RAD ---
Single AP view of the chest. Comparison: 10/11/2019. Indication: Chest pain Findings: The heart is not enlarged. There is no pneumothorax or effusion. No air space or interstitial diseas e. Impression: 1. No acute cardiopulmonary process. Electronically signed by: Sunny Deal MD (09/30/2020 3:46 PM) [id number]
[2020-09-30 15:53] LABS: BASO # 0.2 x10^3/uL (0.0-0.2); BASO % 2 % (0-3); EOS # 0.3 x10^3/uL (0.0-0.7); EOS % 3 % (0-3); HEMATOCRIT 39.9 % (36.0-47.0); HEMOGLOBIN 13.2 g/dL (12.0-15.5); LYMPH # 2.3 x10^3/uL (1.0-4.8); LYMPH % 25 % (24-48); MEAN CORPUSCULAR HEMOGLOBIN 28 pg (25-35); MEAN CORPUSCULAR HGB CONC 33 g/dL (31-37); MEAN CORPUSCULAR VOLUME 84 fL (79-100); MONO # 0.8 x10^3/uL (0.0-1.1); MONO % 9 % (0-9); NEUT # 5.6 x10^3/uL (1.8-7.7); NEUT % 61 % (31-73); PLATELET COUNT 398 x10^3/uL (140-400); RED BLOOD COUNT 4.77 x10^6/uL (3.50-5.40); WHITE BLOOD COUNT 9.2 x10^3/uL (4.0-11.0)
[2020-09-30 16:10] LABS: CALCIUM 9.4 mg/dL (8.5-10.1); CREATININE 0.7 mg/dL (0.6-1.0); GFR 102.3; POTASSIUM 4.2 mmol/L (3.5-5.1)
[2020-09-30 16:17] LABS: MAGNESIUM 2.2 mg/dL (1.8-2.4); TOTAL BILIRUBIN 0.2 mg/dL (0.2-1.0); TOTAL PROTEIN 7.9 g/dL (6.4-8.2)
--- NOTE | 2020-09-30 16:26 | PHYS DOC ---
Past Medical History Past Medical History: Arthritis, Diabetes-Type II, Hypertension, Migraines Additional Past Medical Histor: neuropathy, chronic back pain, iron deficiencies Past Surgical History: Appendectomy, Additional Past Surgical Histo: port removed, R shoulder, R wrist, back sx Smoking Status: Never Smoker Alcohol Use: Occasionally Drug Use: None General Adult EDM: Chief Complaint: CHEST PAIN HPI: HPI: Patient is a 64 year old female who presented to ER for evaluation of right- sided chest pain that been going on for 4 days, stabbing in nature. The pain is worse with cough or deep breathing or palpation on the right side. Patient denies any fever, no trouble breathing. Patient denies any nausea vomiting. Patient has history of arthritis, chronic pain syndrome, fibromyalgia. Patient has a history of diabetic. Patient denies any history of coronary artery disease, no history of blood clot disorder, no family history of coronary disease or blood clot disorder. Patient is not a smoker, she denies any recent travel or operation. Review of Systems: Review of Systems: Constitutional: Denies fever or chills. [] Eyes: Denies change in visual acuity. [] HENT: Denies nasal congestion or sore throat. [] Respiratory: Denies cough or shortness of breath. [] Cardiovascular: Positive for chest pain, no edema. GI: Denies abdominal pain, nausea, vomiting, bloody stools or diarrhea. [] : Denies dysuria. [] Musculoskeletal: Denies back pain or joint pain. [] Integument: Denies rash. [] Neurologic: Denies headache, focal weakness or sensory changes. [] Endocrine: Denies polyuria or polydipsia. [] Lymphatic: Denies swollen glands. [] Psychiatric: Denies depression or anxiety. [] Heart Score: Risk Factors: Risk Factors: DM, Current or recent (<one month) smoker, HTN, HLP, family history of CAD, obesity. Risk Scores: Score 0 - 3: 2.5% MACE over next 6 weeks - Discharge Home Score 4 - 6: 20.3% MACE over next 6 weeks - Admit for Clinical Observation Score 7 - 10: 72.7% MACE over next 6 weeks - Early Invasive Strategies Allergies: Allergies: Allergies Coded Allergies Type Severity Reaction Last Updated Verified cyclobenzaprine Allergy Severe Swelling 06/22/20 Yes Penicillins Allergy Unknown "I DONT KNOW MY MOPM SAYS I WAS" 08/31/19 Yes Uncoded Allergies Type Severity Reaction Last Updated Verified "MUSCLE RELAXER" Allergy Intermediate Unknown 08/31/19 Physical Exam: PE: Constitutional: Well developed, well nourished, no acute distress, non-toxic appearance. [] HENT: Normocephalic, atraumatic, bilateral external ears normal, oropharynx moist, no oral exudates, nose normal. [] Eyes: PERRLA, EOMI, conjunctiva normal, no discharge. [] Neck: Normal range of motion, no tenderness, supple, no stridor. [] Cardiovascular:Heart rate regular rhythm, no murmur [] Lungs & Thorax: Bilateral breath sounds clear to auscultation. Chest pain reproducible to palpation. Right side of the anterior chest is tender to palpation. No crepitus, no deformity. Abdomen: Bowel sounds normal, soft, no tenderness, no masses, no pulsatile masses. [] Skin: Warm, dry, no erythema, no rash. [] Back: No tenderness, no CVA tenderness. [] Extremities: No tenderness, no cyanosis, no clubbing, ROM intact, no edema. [] Neurologic: Alert and oriented X 3, normal motor function, normal sensory function, no focal deficits noted. [] Psychologic: Affect normal, judgement normal, mood normal. [] Current Patient Data: Labs: Laboratory Tests Test 09/30/20 15:45 White Blood Count 9.2 x10^3/uL (4.0-11.0) Red Blood Count 4.77 x10^6/uL (3.50-5.40) Hemoglobin 13.2 g/dL (12.0-15.5) Hematocrit 39.9 % (36.0-47.0) Mean Corpuscular Volume 84 fL (79-100) Mean Corpuscular Hemoglobin 28 pg (25-35) Mean Corpuscular Hemoglobin Concent 33 g/dL (31-37) Red Cell Distribution Width 16.0 % (11.5-14.5) H Platelet Count 398 x10^3/uL (140-400) Neutrophils (%) (Auto) 61 % (31-73) Lymphocytes (%) (Auto) 25 % (24-48) Monocytes (%) (Auto) 9 % (0-9) Eosinophils (%) (Auto) 3 % (0-3) Basophils (%) (Auto) 2 % (0-3) Neutrophils # (Auto) 5.6 x10^3/uL (1.8-7.7) Lymphocytes # (Auto) 2.3 x10^3/uL (1.0-4.8) Monocytes # (Auto) 0.8 x10^3/uL (0.0-1.1) Eosinophils # (Auto) 0.3 x10^3/uL (0.0-0.7) Basophils # (Auto) 0.2 x10^3/uL (0.0-0.2) Laboratory Tests 09/30/20 15:45 Vital Signs: Vital Signs Date Time Temp Pulse Resp B/P (MAP) Pulse Ox O2 Delivery O2 Flow Rate FiO2 09/30/20 15:20 98.3 72 16 131/72 (91) 98 Room Air 98.3 EKG: EKG: EKG was done at 1506, heart rate of 91 beats per minute, sinus rhythm, no ST segment elevation. [] Radiology/Procedures: Radiology/Procedures: [][facility] [address] [place] [address] IMAGING REPORT Signed PATIENT: CHRISTIANA GRANT ACCOUNT: [id number] : 1955 LOCATION: ER AGE: 64 SEX: F EXAM STATUS: REG ER ORD. PHYSICIAN: VINCENZO MARTINEZ DO REASON: CHEST PAIN PROCEDURE: CHEST AP ONLY Single AP view of the chest. Comparison: 10/11/2019. Indication: Chest pain Findings: The heart is not enlarged. There is no pneumothorax or effusion. No air space or interstitial disease. Impression: 1. No acute cardiopulmonary process. Electronically signed by: Sunny Deal MD (09/30/2020 3:46 PM) [id number] DICTATED and SIGNED BY: SUNNY DEAL MD DATE: 09/30/20 [id number] Course & Med Decision Making: Course & Med Decision Making Pertinent Labs and Imaging studies reviewed. (See chart for details) Patient is a 63-year-old female who presented to ER for evaluation of right- sided chest pain, sharp stabbing in nature, musculoskeletal in nature. EKG and enzymes were normal. We will discharge him home. Dragon Disclaimer: Dragon Disclaimer: This electronic medical record was generated, in whole or in part, using a voice recognition dictation system. Departure Departure Impression: Primary Impression: Musculoskeletal chest pain Disposition: 01 DC HOME SELF CARE/HOMELESS Condition: STABLE Referrals: ASAD MALIK (PCP) FOLLOW UP WITH YOUR DOCTOR THIS WEEK Patient Instructions: Chest Wall Pain Additional Instructions: Thank you for visiting our Emergency Department. We appreciate you trusting us with your care. If any additional problems come up don't hesitate to return to visit us. Please follow up with your primary care provider so they can plan additional care if needed and know about the problem that you had. If symptoms worsen come back to the Emergency Department. Any concerning symptoms that start such as chest pain, shortness of air, weakness or numbness on one side of the body, running high fevers or any other concerning symptoms return to the ER. VINCENZO MARTINEZ DO Sep 30, 2020 16:26
--- NOTE | 2020-09-30 16:47 | EKG ---
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
--- NOTE | 2020-09-30 16:47 | EKG ---
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
[2020-09-30 17:21] VITALS: BP 141/79
== END 2020-09-30 18:02 | disposition home or self-care (01) ==
LOC: ER 14:55
DX: R07.89 Other chest pain (principal); R05 Cough; M19.90 Unspecified osteoarthritis, unspecified site; I10 Essential (primary) hypertension; G43.909 Migraine, unspecified, not intractable, without status migrainosus; G89.29 Other chronic pain; E11.40 Type 2 diabetes mellitus with diabetic neuropathy, unspecified; Z90.89 Acquired absence of other organs; Z98.890 Other specified postprocedural states; Z88.0 Allergy status to penicillin; Z88.8 Allergy status to other drugs, medicaments and biological substances
CPT/HCPCS: 36415; 71045; 80053; 83690; 83735; 83880; 84484; 85025; 93005; 99285

== ENCOUNTER 2021-02-19 17:25 | Emergency (ER) | payer MEDICARE, OTHER ==
[~2021-02-19] VITALS: Ht 154.9 cm; Wt 90.4 kg
[~2021-02-19 17:25] MED LIST changes: +LISI10TA16 PO; -LISI10TA2 PO
[2021-02-19 17:44] VITALS: BP 126/62
--- NOTE | 2021-02-19 18:51 | PHYS DOC ---
Past Medical History Past Medical History: Anxiety, Arthritis, Diabetes-Type II, GERD, High Ch olesterol, Hypertension Additional Past Medical Histor: RHEUMATOID ARTHRITIS Past Surgical History: Other Additional Past Surgical Histo: WRIST Smoking Status: Never Smoker Alcohol Use: None Drug Use: None General Adult EDM: Chief Complaint: LOWER EXTREMITY SWELLING HPI: HPI: 65-year-old female presents with right lower extremity swelling x10 days. Patient reports was instructed by home health nurse to present to the ER for evaluation due to concern for blood clot. Patient denies history of DVT/PE. Denies use of blood thinners. Denies trauma. Patient does report her left lower extremity had a similar occurrence a few weeks ago which self resolved. Patient also reports when the swelling initially started she noted a circular red lesion popped up which is tender to palpation. Denies being bit by an insect. Denies fever or chills. Denies chest pain or shortness of air. Review of Systems: Review of Systems: Constitutional: Denies fever or chills Eyes: Denies redness or eye pain HENT: Denies nasal congestion or sore throat Respiratory: Denies cough or shortness of breath Cardiovascular: Denies chest pain or palpitations GI: Denies abdominal pain, nausea, or vomiting : Denies dysuria or hematuria Musculoskeletal: Denies back pain; right leg swelling and tenderness Integument: Reports small erythematous lesion to anterior right tibial region which is tender to palpation; denies laceration, contusion, or abrasion Neurologic: Denies headache, focal weakness or sensory changes Complete systems were reviewed and found to be within normal limits, except as documented in this note. Heart Score: C/O Chest Pain: N/A Allergies: Allergies: Allergies Coded Allergies Type Severity Reaction Last Updated Verified cyclobenzaprine Allergy Severe Swelling 06/22/20 Yes Penicillins Allergy Unknown "I DONT KNOW MY MOPM SAYS I WAS" 08/31/19 Yes Uncoded Allergies Type Severity Reaction Last Updated Verified "MUSCLE RELAXER" Allergy Intermediate Unknown 08/31/19 Physical Exam: PE: Constitutional: Well developed, well nourished, no acute distress, non-toxic appearance HENT: Normocephalic, atraumatic Eyes: Conjunctiva normal, no discharge Neck: Normal range of motion, supple Lungs & Thorax: No respiratory distress, equal chest rise and fall Skin: Warm, dry, no erythema, no rash Extremities: Right anterior tibial tenderness, ROM intact, mild edema to RLE, small right 2cm pretibial circular erythema which is tender to palpation, no induration or fluctuance Neurologic: Alert and oriented X 3, no focal deficits noted Psychologic: Affect normal, judgment normal Current Patient Data: Vital Signs: Vital Signs Date Time Temp Pulse Resp B/P (MAP) Pulse Ox O2 Delivery O2 Flow Rate FiO2 02/19/21 17:44 97.9 94 18 126/62 (83) 98 Room Air 97.9 EKG: EKG: [] Radiology/Procedures: Radiology/Procedures: [] Course & Med Decision Making: Course & Med Decision Making Patient presents with right lower extremity swelling and small circular erythematous lesion. Reports symptoms have been ongoing for the last 10 days. Patient was instructed by her home health nurse to present to the ER for evaluation due to concern for possible DVT. Patient denies history of DVT/PE. Denies known trauma. Denies fever or chills. Circular lesion without induration or fluctuance. Patient is afebrile. Ultrasound ordered for rule out DVT. 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 Patient became upset regarding wait time. Patient elected to leave AGAINST MEDICAL ADVICE. Patient excepting risks of leaving AMA including permanent disability and/or . AMA paperwork signed. Rafaela Disclaimer: Rafaela Disclaimer: This electronic medical record was generated, in whole or in part, using a voice recognition dictation system. Departure Departure Impression: Primary Impression: Edema of right lower leg Additional Impression: Left against medical advice Disposition: LEFT AGAINST MEDICAL ADVICE Condition: GUARDED Referrals: ASAD MALIK (PCP) Patient Instructions: Discharge Against Medical Advice LATOYA CUADRA DO Feb 19, 2021 18:51
== END 2021-02-19 19:43 | disposition left against medical advice (07) ==
LOC: ER 17:25
DX: R60.0 Localized edema (principal); E11.9 Type 2 diabetes mellitus without complications; K21.9 Gastro-esophageal reflux disease without esophagitis; E78.00 Pure hypercholesterolemia, unspecified; I10 Essential (primary) hypertension; Z88.0 Allergy status to penicillin; Z88.8 Allergy status to other drugs, medicaments and biological substances
CPT/HCPCS: 99281

== ENCOUNTER → 2021-07-23 | Outpatient (CLI) | payer MEDICARE, MEDICAID ==
[~2021-07-23] MED LIST changes: -CLIN150C15 PO; +CLIN150C16 PO
--- NOTE | 2021-07-23 17:38 | KCIC ---
Bilateral digital screening 2-D and 3-D (digital breast tomosynthesis) mammogram: Reason for examination: Routine screening. Comparison: Mammograms from 07/21/2020 and 01/24/2019 Interpretation was made with the benefit of CAD. FINDINGS: Breast density: Category B. There are scattered areas of fibroglandular density. No suspicious breast mass, malignant appearing calcifications, or architectural distortion is seen. IMPRESSION: No evidence of malignancy. Assessment: BI-RADS 1. Negative. Recommendation: Routine screening mammograms. The patient will receive a letter with the results in the mail. Patient information will be entered i nto the mammography reminder system with a target recall date for the next mammogram. A reminder kike er will be generated. Electronically signed by: Marcela Samuels MD (07/23/2021 5:35 PM) [id number]
== END ==
LOC: KCIC MAMMO 13:04
PROVIDERS: ATTEND Family Medicine
DX: Z12.31 Encounter for screening mammogram for malignant neoplasm of breast (principal)
CPT/HCPCS: 77063; 77067